=== PATIENT | male | born 1960 | race Caucasian/White ===

== ENCOUNTER 2017-05-16 08:06 | Emergency (ER) | payer MEDICAID ==
[~2017-05-16] VITALS: Ht 180.3 cm; Wt 62.6 kg
[~2017-05-16 08:06] MED LIST: FERR-57 PO; FURO-150 PO; MECL12.5 PO; MEGE40TA PO; OMEP20CA10 PO; POTA20TA83 PO; SPIR50TA PO; TRAM50TA92 PO
[2017-05-16 08:11] VITALS: BP_SYST 92
--- NOTE | 2017-05-16 08:15 | NUR ---
Patient to ER bed 5 to gown for evaluation. Side rails up. Report given to Dary WARD.
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
--- NOTE | 2017-05-16 08:26 | NUR ---
ER at bedside examining patient.
[2017-05-16] MEDS ORDERED: KETOROLAC TROMETHAMINE 30 MG VIAL IVP ONE (08:30)
--- NOTE | 2017-05-16 08:30 | NUR ---
# 20 gauge angiocath placed to rt wrist. Use of asceptic technique. Opsite placed over site. Flushed with 10 cc of normal saline. No evidence of infiltration noted. Patient tolerated well.
[2017-05-16 08:51] LABS: BASOPHILS % (AUTO) 0.5 % (0.0-2.0); EOSINOPHILS # (AUTO) 0.2 K/uL (0.0-0.4); EOSINOPHILS % (AUTO) 2.5 % (0.0-4.0); HEMATOCRIT 41.4 % (36-54); HEMOGLOBIN 13.6 g/dL (14.0-18.0); LYMPHOCYTES # (AUTO) 1.8 K/uL (1.0-5.5); LYMPHOCYTES % (AUTO) 24.3 % (20.5-51.5); MEAN CORPUSCULAR HEMOGLOBIN 33 pg (27-31); MEAN CORPUSCULAR HGB CONC 33 % (32-36); MEAN CORPUSCULAR VOLUME 102 fL (79.0-98.0); MONOCYTES # (AUTO) 0.5 K/uL (0.0-1.0); MONOCYTES % (AUTO) 6.9 % (1.7-9.3); NEUTROPHILS # (AUTO) 4.8 K/uL (1.8-7.7); PLATELET COUNT (AUTO) 91 K/uL (130-430); RED BLOOD CELL COUNT(AUTO) 4.07 MIL/uL (4.2-6.2); RED CELL DISTRIBUTION WIDTH 13.5 % (9.0-15.0); WHITE BLOOD COUNT (AUTO) 7.3 K/uL (4.8-10.8)
--- NOTE | 2017-05-16 09:00 | NUR ---
Pt went to radiology in stable condition
[2017-05-16 09:08] LABS: CALCIUM 9.2 mg/dL (8.4-11.0); CREATININE 0.92 mg/dL (0.55-1.30); POTASSIUM 3.8 mmol/L (3.5-5.1)
[2017-05-16 09:13] LABS: ALBUMIN 3.5 g/dL (3.4-4.8); TOTAL BILIRUBIN 0.2 mg/dL (0.0-1.0)
[2017-05-16 10:01] LABS: BILIRUBIN,URINE NEGATIVE (NEGATIVE); CLARITY/URINE CLEAR (CLEAR); COLOR,URINE YELLOW (YELLOW); GLUCOSE,URINE NEGATIVE (NEGATIVE); KETONES,URINE NEGATIVE (NEGATIVE); LEUKOCYTE ESTERASE ,URINE NEGATIVE (NEGATIVE); NITRITE, URINE NEGATIVE (NEGATIVE); PROTEIN URINE NEGATIVE (NEGATIVE); UROBILINOGEN,URINE 0.2 (0.2-1.0)
[2017-05-16 10:03] LABS: BLOOD, URINE TRACE (NEGATIVE)
[2017-05-16 10:05] LABS: NEUTROPHILS % (AUTO) 65.8 % (40.0-70.0)
[2017-05-16 10:12] LABS: BACTERIA,URINE RARE /HPF (None Seen); RBC,URINE 0-3 /HPF (0-3); WBC,URINE NONE SEEN /HPF (0-3)
[2017-05-16 10:13] LABS: MUCUS,URINE None Seen /LPF (None Seen)
[2017-05-16 10:15] VITALS: BP_SYST 100
--- NOTE | 2017-05-16 10:15 | NUR ---
Patient given written and verbal discharge instructions and verbalizes understanding. ER MD discussed with patient the results and treatment provided. Patient in stable condition. ID arm band removed. IV catheter removed intact and dressing applied, no active bleeding. Rx of motrin given. Patient educated on pain management and to follow up with PMD. Pain Scale 3. Dr Valadez is aware, pain medication given here and prescription for home Opportunity for questions provided and answered.
== END 2017-05-16 10:15 | disposition home or self-care (01) ==
LOC: SED 08:06
DX: S20.211A Contusion of right front wall of thorax, initial encounter (principal); W19.XXXA Unspecified fall, initial encounter; Y93.89 Activity, other specified; Y92.89 Other specified places as the place of occurrence of the external cause; Y99.8 Other external cause status; J44.9 Chronic obstructive pulmonary disease, unspecified; K74.60 Unspecified cirrhosis of liver; Z79.899 Other long term (current) drug therapy
CPT/HCPCS: 36415; 71250; 74176; 80053; 81000; 85025; 96374; 99285; J1885

== ENCOUNTER 2017-05-29 20:18 | Emergency (ER) | payer MEDICAID ==
[~2017-05-29] VITALS: Ht 180.3 cm; Wt 62.6 kg
[2017-05-29 20:27] VITALS: BP_SYST 93
[2017-05-29] MEDS ORDERED: NACL 0.9% 500 ML IV ONE (21:30)
[2017-05-29] MEDS ORDERED: LIDOCAINE 1% 10 MG/ML, 20 ML MDV INJ ONE (21:30)
[2017-05-29] MEDS ORDERED: KETOROLAC TROMETHAMINE 30 MG VIAL IVP ONE (21:45)
[2017-05-29 23:35] VITALS: BP_SYST 98
== END 2017-05-29 23:35 | disposition home or self-care (01) ==
LOC: SED 20:18
DX: S82.144A Nondisplaced bicondylar fracture of right tibia, initial encounter for closed fracture (principal); S83.511A Sprain of anterior cruciate ligament of right knee, initial encounter; J44.9 Chronic obstructive pulmonary disease, unspecified; K74.60 Unspecified cirrhosis of liver; Z79.899 Other long term (current) drug therapy; W18.09XA Striking against other object with subsequent fall, initial encounter; Y93.89 Activity, other specified; Y92.89 Other specified places as the place of occurrence of the external cause; Y99.8 Other external cause status
CPT/HCPCS: 20610; 73564; 73610; 73700; 96374; 99284; J1885; J2001; J7040

== ENCOUNTER 2017-10-08 15:53 | Inpatient (IN) | payer MEDICAID ==
[~2017-10-08] VITALS: Ht 177.8 cm; Wt 55.8 kg
[2017-10-08 16:21] VITALS: BP_SYST 104
[2017-10-08] MEDS ORDERED: BACITRACIN 1 GM OINT TP ONE (17:00)
[2017-10-08] MEDS ORDERED: HYDROcodone/ACETAMIN 5-325 MG TAB (NORCO/ VICODIN) PO ONE (18:15)
[2017-10-08 19:57] LABS: BASOPHILS # (AUTO) 0.1 K/uL (0.0-0.2); BASOPHILS % (AUTO) 0.5 % (0.0-2.0); EOSINOPHILS # (AUTO) 0.1 K/uL (0.0-0.4); HEMOGLOBIN 14.2 g/dL (14.0-18.0); LYMPHOCYTES # (AUTO) 2.5 K/uL (1.0-5.5); LYMPHOCYTES % (AUTO) 23.1 % (20.5-51.5); MEAN CORPUSCULAR HEMOGLOBIN 34 pg (27-31); MEAN CORPUSCULAR HGB CONC 33 % (32-36); MEAN CORPUSCULAR VOLUME 102 fL (79.0-98.0); MONOCYTES # (AUTO) 0.4 K/uL (0.0-1.0); MONOCYTES % (AUTO) 3.8 % (1.7-9.3); NEUTROPHILS # (AUTO) 7.6 K/uL (1.8-7.7); NEUTROPHILS % (AUTO) 71.6 % (40.0-70.0); PLATELET COUNT (AUTO) 177 K/uL (130-430); RED BLOOD CELL COUNT(AUTO) 4.23 MIL/uL (4.2-6.2); RED CELL DISTRIBUTION WIDTH 14.4 % (9.0-15.0); WHITE BLOOD COUNT (AUTO) 10.7 K/uL (4.8-10.8)
[2017-10-08 20:07] LABS: CALCIUM 9.2 mg/dL (8.4-11.0); CREATININE 1.27 mg/dL (0.55-1.30); POTASSIUM 3.6 mmol/L (3.5-5.1)
[2017-10-08 20:12] LABS: ALBUMIN 4.2 g/dL (3.4-4.8); TOTAL BILIRUBIN 0.3 mg/dL (0.0-1.0)
[2017-10-08 22:24] VITALS: BP_SYST 105
[2017-10-08] MEDS ORDERED: LORazepam 2 MG/ML VIAL IVP PRN (23:30)
[2017-10-08] MEDS ORDERED: ALBUTEROL SULFATE 0.083% 2.5 MG/3 ML VIAL.NEB INH PRN (23:30)
[2017-10-08] MEDS ORDERED: ACETAMINOPHEN 325 MG TABLET PO PRN (23:30)
[2017-10-08] MEDS ORDERED: ONDANSETRON HCL 4 MG/2 ML VIAL IVP PRN (23:30)
[2017-10-09 00:29] VITALS: BP_SYST 105
[2017-10-09] MEDS: D5NS 1,000 ML IV SCH ×2 (00:29→14:42)
[2017-10-09] MEDS: MORPHINE 2 MG/ML INJ. SYRINGE IVP PRN ×5 (00:30→23:17)
[2017-10-09 00:35] VITALS: BP_SYST 105
[2017-10-09 06:51] LABS: BASOPHILS % (AUTO) 0.4 % (0.0-2.0); EOSINOPHILS # (AUTO) 0.1 K/uL (0.0-0.4); EOSINOPHILS % (AUTO) 0.7 % (0.0-4.0); HEMOGLOBIN 12.9 g/dL (14.0-18.0); LYMPHOCYTES # (AUTO) 1.5 K/uL (1.0-5.5); LYMPHOCYTES % (AUTO) 15.3 % (20.5-51.5); MEAN CORPUSCULAR HEMOGLOBIN 35 pg (27-31); MEAN CORPUSCULAR HGB CONC 34 % (32-36); MEAN CORPUSCULAR VOLUME 103 fL (79.0-98.0); MONOCYTES # (AUTO) 0.8 K/uL (0.0-1.0); MONOCYTES % (AUTO) 8.2 % (1.7-9.3); NEUTROPHILS # (AUTO) 7.6 K/uL (1.8-7.7); NEUTROPHILS % (AUTO) 75.4 % (40.0-70.0); PLATELET COUNT (AUTO) 119 K/uL (130-430); RED BLOOD CELL COUNT(AUTO) 3.69 MIL/uL (4.2-6.2); RED CELL DISTRIBUTION WIDTH 14.1 % (9.0-15.0)
[2017-10-09 07:28] LABS: ALBUMIN 3.6 g/dL (3.4-4.8); CALCIUM 8.9 mg/dL (8.4-11.0); CREATININE 1.03 mg/dL (0.55-1.30); POTASSIUM 3.3 mmol/L (3.5-5.1); TOTAL BILIRUBIN 0.7 mg/dL (0.0-1.0)
[2017-10-09 08:40] VITALS: BP_SYST 129
[2017-10-09] MEDS: BANANA BAG 1 EA, FOLIC ACID 1 MG, THIAMINE HCL 100 MG, MAGNESIUM SULFATE 1 GM, MVI 10 M... IV SCH ×5 (10:47)
[2017-10-09 12:17] VITALS: BP_SYST 107
[2017-10-09 16:24] VITALS: BP_SYST 108
[2017-10-09 19:36] VITALS: BP_SYST 104
[2017-10-10] MEDS: D5NS 1,000 ML IV SCH (00:09)
[2017-10-10 00:46] VITALS: BP_SYST 106
[2017-10-10 08:30] VITALS: BP_SYST 105
[2017-10-10] MEDS: MORPHINE 2 MG/ML INJ. SYRINGE IVP PRN ×2 (08:44→15:21)
[2017-10-10] MEDS ORDERED: traMADol HCL HCL 50 MG TABLET (ULTRAM) PO PRN (09:45)
[2017-10-10] MEDS: BANANA BAG 1 EA, FOLIC ACID 1 MG, THIAMINE HCL 100 MG, MAGNESIUM SULFATE 1 GM, MVI 10 M... IV SCH ×5 (11:05)
[2017-10-10 12:10] VITALS: BP_SYST 101
[2017-10-10 16:10] VITALS: BP_SYST 95
[2017-10-10 18:37] VITALS: BP_SYST 95
[2017-10-10 20:00] VITALS: BP_SYST 104
== END 2017-10-10 21:25 | DRG 342 ==
LOC: SED 15:53 → SMU 20:38
PROVIDERS: ADMIT Internal Medicine; ATTEND Internal Medicine
PROC: 2W3DX1Z Immobilization of Left Lower Arm using Splint (ICD-10-PCS; principal; 2017-10-08)
DX: S52.509A Unspecified fracture of the lower end of unspecified radius, initial encounter for closed fracture (principal); S72.112A Displaced fracture of greater trochanter of left femur, initial encounter for closed fracture; K74.60 Unspecified cirrhosis of liver; J44.9 Chronic obstructive pulmonary disease, unspecified; D75.89 Other specified diseases of blood and blood-forming organs; F10.20 Alcohol dependence, uncomplicated; F17.210 Nicotine dependence, cigarettes, uncomplicated; V18.4XXA Pedal cycle driver injured in noncollision transport accident in traffic accident, initial encounter; Y93.55 Activity, bike riding; Y92.482 Bike path as the place of occurrence of the external cause; Y99.8 Other external cause status
CPT/HCPCS: 36415; 71045; 72170-TC; 72192-TC; 73502; 73560-TC; 80053; 85025; 85610-TC; 86886; 86900; 86901; 93005; 93306; 97110-GP; 97116-GP; 97530-GP; 99285; J2060; J2270; J3411; J3475; J3490; J7030; J7042

== ENCOUNTER 2018-02-21 05:16 | Inpatient (IN) | payer MEDICAID ==
[2018-02-21] VITALS (18 sets, daily range): BP systolic 82–153
[~2018-02-21] VITALS: Ht 180.3 cm; Wt 59.0 kg
[~2018-02-21 05:16] MED LIST changes: +ASPI-1063 PO; +CARV3.1246 PO; -FERR-57 PO; +FOLI-43 PO; -MECL12.5 PO; -MEGE40TA PO; -OMEP20CA10 PO; -POTA20TA83 PO; -SPIR50TA PO; +VITD400 PO
[2018-02-21] MEDS ORDERED: NACL 0.9% 1,000 ML IV ONE ×5 (05:30→10:15)
[2018-02-21] MEDS ORDERED: LEVOFLOXACIN 500 MG/D5W 100 ML IV ONE (05:30)
[2018-02-21] MEDS ORDERED: methylPREDNISolone SOD SUCC 40 MG/ML VIAL IVP ONE (05:30)
[2018-02-21] MEDS ORDERED: ASPI-862 PO (05:44)
[2018-02-21] MEDS ORDERED: SPIR50TA26 PO (05:44)
[2018-02-21] MEDS ORDERED: FERR-57 PO (05:44)
[2018-02-21] MEDS ORDERED: TRIA1CAP53 PO (05:44)
[2018-02-21] MEDS ORDERED: LIP20 PO (05:44)
[2018-02-21 07:51] LABS: CALCIUM 7.7 mg/dL (8.4-11.0); CREATININE 3.6 mg/dL (0.55-1.30); POTASSIUM 4.9 mmol/L (3.5-5.1)
[2018-02-21 08:00] LABS: ALBUMIN 3.2 g/dL (3.4-4.8); TOTAL BILIRUBIN 0.8 mg/dL (0.0-1.0)
[2018-02-21] MEDS ORDERED: SODIUM BICARBONATE 8.4% JECT 50 MEQ/50 ML SYRINGE ONE (08:29)
[2018-02-21] MEDS ORDERED: SODIUM BICARBONATE 8.4% JECT 50 MEQ/50 ML SYRINGE IVP ONE (08:30)
[2018-02-21 08:57] LABS: PLATELET COUNT (AUTO) 115 K/uL (130-430)
[2018-02-21] MEDS ORDERED: PANTOPRAZOLE SODIUM 40 MG/VIAL (PROTONIX) IVP ONE (09:00)
[2018-02-21 09:01] LABS: HEMATOCRIT 40.3 % (36-54); HEMOGLOBIN 13.5 g/dL (14.0-18.0); MEAN CORPUSCULAR HEMOGLOBIN 36 pg (27-31); MEAN CORPUSCULAR HGB CONC 34 % (32-36); MEAN CORPUSCULAR VOLUME 107 fL (79.0-98.0); RED BLOOD CELL COUNT(AUTO) 3.75 MIL/uL (4.2-6.2); RED CELL DISTRIBUTION WIDTH 16.6 % (9.0-15.0); WHITE BLOOD COUNT (AUTO) 24.8 K/uL (4.8-10.8)
[2018-02-21 09:11] LABS: INR 1.2 (0.80-1.20); PROTHROMBIN TIME 11.8 SECS (9.5-12.5)
[2018-02-21 09:28] LABS: BAND % (MANUAL) 6 % (0-6); BASOPHILS % (MANUAL) 0 % (0-2); EOSINOPHILS % (MANUAL) 0 % (0-7); LYMPHOCYTES % (MANUAL) 8 % (20-46); MONOCYTES % (MANUAL) 4 % (0-11)
[2018-02-21] MEDS ORDERED: LORazepam 2 MG/ML VIAL ONE (09:51)
[2018-02-21 10:23] LABS: HEMATOCRIT 41.4 % (36-54); HEMOGLOBIN 13.7 g/dL (14.0-18.0)
[2018-02-21] MEDS ORDERED: NACL 0.9% 1,000 ML IV SCH ×2 (10:30→14:30)
[2018-02-21] MEDS ORDERED: OCTREOTIDE ACETATE 500 MCG in NS 247.5 ML IV SCH (10:45)
[2018-02-21] MEDS ORDERED: BANANA BAG 1 EA, FOLIC ACID 1 MG, THIAMINE HCL 100 MG, MAGNESIUM SULFATE 1 GM, MVI 10 M... IV SCH ×5 (11:00)
[2018-02-21] MEDS ORDERED: OCTREOTIDE ACETATE 1,250 MCG in NS 243.75 ML IV SCH (12:00)
[2018-02-21] MEDS ORDERED: PANTOPRAZOLE SODIUM 80 MG in NS 100 ML IV ONE (12:00)
[2018-02-21] MEDS: PANTOPRAZOLE SODIUM 40 MG in NS 50 ML IV SCH ×3 (12:44→23:26)
[2018-02-21] MEDS: PIPERACILLIN/TAZO 3.375/DEX-IS 50 ML IV SCH ×4 (13:20→23:26)
[2018-02-21] MEDS ORDERED: IPRATROPIUM BROM 0.5 MG/2.5 ML VIAL.NEB (ATROVENT) INH PRN (14:15)
[2018-02-21] MEDS ORDERED: ALBUTEROL SULFATE 0.083% 2.5 MG/3 ML VIAL.NEB INH PRN (14:15)
[2018-02-21 14:59] LABS: HEMATOCRIT 36.6 % (36-54)
[2018-02-21 15:00] LABS: HEMOGLOBIN 12.5 g/dL (14.0-18.0)
[2018-02-21 15:08] LABS: ANION GAP 24 (5-15); CHLORIDE 98 mmol/L (98-107); GLUCOSE 148 mg/dL (70-99); POTASSIUM 4.9 mmol/L (3.5-5.1); SODIUM SERUM 135 mmol/L (136-145)
[2018-02-21 15:09] LABS: CALCIUM 6.6 mg/dL (8.4-11.0)
[2018-02-21 15:10] LABS: ACETONE, SERUM TRACE (NEGATIVE); CREATININE 2.39 mg/dL (0.55-1.30); GFR AFRICAN AMERICAN 37 mL/min (>90); UREA NITROGEN, BLOOD 58 mg/dL (8-21)
[2018-02-21 15:17] LABS: ALANINE AMINOTRANSFERASE 139 U/L (12-78); ALBUMIN 2.9 g/dL (3.4-4.8); ASPARTATE AMINOTRANSFERASE 281 U/L (10-37); TOTAL BILIRUBIN 1.3 mg/dL (0.0-1.0)
[2018-02-21] MEDS ORDERED: fentaNYL CITRATE/PF 100 MCG/2 ML AMP ONE (15:24)
[2018-02-21] MEDS ORDERED: SIMETHICONE 40 MG/0.6 ML ML ONE (15:25)
[2018-02-21 15:42] LABS: LIPASE 5980 U/L (73-393)
[2018-02-21] MEDS: MEPERIDINE HCL/PF 100 MG/ML AMP ONE ×3 (16:14→16:22)
[2018-02-21] MEDS: MIDAZOLAM HCL 5 MG/5 ML VIAL ONE ×4 (16:16→16:26)
[2018-02-21] MEDS ORDERED: DIPHENHYDRAMINE INJ 50 MG/ML VIAL ONE (16:55)
[2018-02-21] MEDS ORDERED: SODIUM BICARBONATE 8.4% JECT 150 MEQ in D5W 1,000 ML IV SCH (17:00)
[2018-02-21] MEDS: ALBUTEROL SULFATE 0.083% 2.5 MG/3 ML VIAL.NEB INH SCH (19:58)
[2018-02-21] MEDS: IPRATROPIUM BROM 0.5 MG/2.5 ML VIAL.NEB (ATROVENT) INH SCH (19:59)
[2018-02-21] MEDS ORDERED: PANTOPRAZOLE SODIUM 40 MG/VIAL (PROTONIX) IVP SCH (21:00)
[2018-02-21 21:20] LABS: HEMATOCRIT 36.2 % (36-54); HEMOGLOBIN 12.6 g/dL (14.0-18.0)
[2018-02-22] VITALS (24 sets, daily range): BP systolic 96–127
[2018-02-22] MEDS: ALBUTEROL SULFATE 0.083% 2.5 MG/3 ML VIAL.NEB INH SCH ×4 (01:13→19:56)
[2018-02-22] MEDS: IPRATROPIUM BROM 0.5 MG/2.5 ML VIAL.NEB (ATROVENT) INH SCH ×4 (01:13→19:56)
[2018-02-22] MEDS: NACL 0.9% 1,000 ML IV SCH ×4 (01:27→16:42)
[2018-02-22] MEDS: PANTOPRAZOLE SODIUM 40 MG in NS 50 ML IV SCH ×5 (01:29→23:13)
[2018-02-22 04:29] LABS: HEMATOCRIT 36.6 % (36-54); HEMOGLOBIN 12.3 g/dL (14.0-18.0); MEAN CORPUSCULAR HEMOGLOBIN 36 pg (27-31); MEAN CORPUSCULAR HGB CONC 34 % (32-36); MEAN CORPUSCULAR VOLUME 107 fL (79.0-98.0); PLATELET COUNT (AUTO) 53 K/uL (130-430); RED BLOOD CELL COUNT(AUTO) 3.42 MIL/uL (4.2-6.2); RED CELL DISTRIBUTION WIDTH 16.6 % (9.0-15.0)
[2018-02-22 04:47] LABS: ALBUMIN 2.8 g/dL (3.4-4.8); CREATININE 1.88 mg/dL (0.55-1.30); POTASSIUM 3.8 mmol/L (3.5-5.1); THYROID STIMULATING HORMONE 0.21 uIu/mL (0.34-4.82); TOTAL BILIRUBIN 0.9 mg/dL (0.0-1.0)
[2018-02-22 04:58] LABS: CALCIUM 6.9 mg/dL (8.4-11.0)
[2018-02-22] MEDS: PIPERACILLIN/TAZO 3.375/DEX-IS 50 ML IV SCH ×4 (05:13→23:12)
[2018-02-22 05:20] LABS: WHITE BLOOD COUNT (AUTO) 7.2 K/uL (4.8-10.8)
[2018-02-22 06:06] LABS: BAND % (MANUAL) 13 % (0-6); BASOPHILS % (MANUAL) 0 % (0-2); EOSINOPHILS % (MANUAL) 0 % (0-7); LYMPHOCYTES % (MANUAL) 9 % (20-46); MONOCYTES % (MANUAL) 7 % (0-11)
[2018-02-22] MEDS: THIAMINE HCL 100 MG in NS 50 ML IV SCH (08:31)
[2018-02-22] MEDS: LORazepam 2 MG/ML VIAL IVP PRN ×3 (08:32→16:42)
[2018-02-22] MEDS: chlordiazePOXIDE HCL 25 MG CAPSULE PO SCH ×2 (11:03→21:36)
[2018-02-22 15:47] LABS: HEMATOCRIT 34.9 % (36-54); HEMOGLOBIN 11.6 g/dL (14.0-18.0)
[2018-02-22] MEDS ORDERED: VANCOMYCIN HCL 1000 MG/VIAL IV ONE (20:53)
[2018-02-22] MEDS ORDERED: VANCOMYCIN HCL 1 GM/NS PREMIX 250 ML IV SCH ×2 (21:00→21:30)
[2018-02-22 21:24] LABS: HEMOGLOBIN 11.2 g/dL (14.0-18.0)
[2018-02-23] VITALS (13 sets, daily range): BP systolic 91–122
[2018-02-23] MEDS: IPRATROPIUM BROM 0.5 MG/2.5 ML VIAL.NEB (ATROVENT) INH SCH ×4 (01:00→19:30)
[2018-02-23] MEDS: ALBUTEROL SULFATE 0.083% 2.5 MG/3 ML VIAL.NEB INH SCH ×4 (01:00→19:30)
[2018-02-23] MEDS: NACL 0.9% 1,000 ML IV SCH ×2 (03:01→12:26)
[2018-02-23] MEDS: PANTOPRAZOLE SODIUM 40 MG in NS 50 ML IV SCH (04:07)
[2018-02-23] MEDS: PIPERACILLIN/TAZO 3.375/DEX-IS 50 ML IV SCH ×4 (05:08→22:14)
[2018-02-23 06:53] LABS: ALBUMIN 2.4 g/dL (3.4-4.8); CALCIUM 7.7 mg/dL (8.4-11.0); CREATININE 0.97 mg/dL (0.55-1.30); POTASSIUM 3.4 mmol/L (3.5-5.1); TOTAL BILIRUBIN 0.7 mg/dL (0.0-1.0)
[2018-02-23 07:30] LABS: HEMATOCRIT 33.7 % (36-54); LYMPHOCYTES # (AUTO) 0.7 K/uL (1.0-5.5); MEAN CORPUSCULAR VOLUME 107 fL (79.0-98.0); MONOCYTES # (AUTO) 0.7 K/uL (0.0-1.0); RED BLOOD CELL COUNT(AUTO) 3.15 MIL/uL (4.2-6.2); WHITE BLOOD COUNT (AUTO) 5.4 K/uL (4.8-10.8)
[2018-02-23 08:05] LABS: BASOPHILS % (AUTO) 0.6 % (0.0-2.0); EOSINOPHILS % (AUTO) 0.6 % (0.0-4.0); HEMOGLOBIN 11.1 g/dL (14.0-18.0); LYMPHOCYTES % (AUTO) 13.2 % (20.5-51.5); MEAN CORPUSCULAR HEMOGLOBIN 35 pg (27-31); MEAN CORPUSCULAR HGB CONC 33 % (32-36); MONOCYTES % (AUTO) 12.4 % (1.7-9.3); NEUTROPHILS % (AUTO) 73.2 % (40.0-70.0); RED CELL DISTRIBUTION WIDTH 16.5 % (9.0-15.0)
[2018-02-23 08:19] LABS: PLATELET COUNT (AUTO) 38 K/uL (130-430)
[2018-02-23] MEDS ORDERED: VANCOMYCIN HCL 750 MG in NS 250 ML IV SCH (09:00)
[2018-02-23] MEDS ORDERED: THIAMINE HCL 100 MG/ML VIAL ONE (09:50)
[2018-02-23] MEDS: PANTOPRAZOLE SODIUM 40 MG/VIAL (PROTONIX) IVP SCH ×2 (09:50→20:46)
[2018-02-23] MEDS: chlordiazePOXIDE HCL 25 MG CAPSULE PO SCH ×2 (09:50→20:45)
[2018-02-23] MEDS: VANCOMYCIN HCL 125 MG CAPSULE PO SCH ×4 (09:51→20:45)
[2018-02-23] MEDS: THIAMINE HCL 100 MG in NS 50 ML IV SCH (10:03)
[2018-02-23] MEDS ORDERED: POTASSIUM CHLORIDE 20 MEQ TAB.PRT.SR PO ONE (15:15)
[2018-02-23 21:05] LABS: HEMATOCRIT 31.6 % (36-54); HEMOGLOBIN 10.7 g/dL (14.0-18.0)
[2018-02-24] VITALS: BP_SYST 92
[2018-02-24] MEDS: ALBUTEROL SULFATE 0.083% 2.5 MG/3 ML VIAL.NEB INH SCH ×4 (00:56→19:06)
[2018-02-24] MEDS: IPRATROPIUM BROM 0.5 MG/2.5 ML VIAL.NEB (ATROVENT) INH SCH ×4 (00:57→19:06)
[2018-02-24] MEDS: PIPERACILLIN/TAZO 3.375/DEX-IS 50 ML IV SCH ×4 (04:35→22:07)
[2018-02-24 06:46] LABS: BASOPHILS % (AUTO) 0.4 % (0.0-2.0); EOSINOPHILS # (AUTO) 0.1 K/uL (0.0-0.4); EOSINOPHILS % (AUTO) 1.4 % (0.0-4.0); HEMATOCRIT 30.4 % (36-54); HEMOGLOBIN 10.3 g/dL (14.0-18.0); LYMPHOCYTES # (AUTO) 0.9 K/uL (1.0-5.5); LYMPHOCYTES % (AUTO) 16.6 % (20.5-51.5); MEAN CORPUSCULAR HEMOGLOBIN 36 pg (27-31); MEAN CORPUSCULAR HGB CONC 34 % (32-36); MEAN CORPUSCULAR VOLUME 106 fL (79.0-98.0); MONOCYTES # (AUTO) 0.6 K/uL (0.0-1.0); MONOCYTES % (AUTO) 11.6 % (1.7-9.3); NEUTROPHILS # (AUTO) 3.8 K/uL (1.8-7.7); RED BLOOD CELL COUNT(AUTO) 2.85 MIL/uL (4.2-6.2); RED CELL DISTRIBUTION WIDTH 16.8 % (9.0-15.0); WHITE BLOOD COUNT (AUTO) 5.4 K/uL (4.8-10.8)
[2018-02-24 06:57] LABS: ALBUMIN 2.3 g/dL (3.4-4.8); CALCIUM 8.1 mg/dL (8.4-11.0); CREATININE 0.96 mg/dL (0.55-1.30); POTASSIUM 3.4 mmol/L (3.5-5.1); TOTAL BILIRUBIN 0.7 mg/dL (0.0-1.0)
[2018-02-24 07:03] LABS: PLATELET COUNT (AUTO) 34 K/uL (130-430)
[2018-02-24 07:49] VITALS: BP_SYST 92
[2018-02-24 08:15] VITALS: BP_SYST 132
[2018-02-24] MEDS ORDERED: POTASSIUM CHLORIDE 20 MEQ TAB.PRT.SR PO ONE (09:30)
[2018-02-24] MEDS: chlordiazePOXIDE HCL 25 MG CAPSULE PO SCH ×2 (09:45→20:23)
[2018-02-24] MEDS: THIAMINE HCL 100 MG in NS 50 ML IV SCH (09:45)
[2018-02-24] MEDS: VANCOMYCIN HCL 125 MG CAPSULE PO SCH ×4 (09:45→20:23)
[2018-02-24] MEDS: PANTOPRAZOLE SODIUM 40 MG/VIAL (PROTONIX) IVP SCH ×2 (09:45→20:23)
[2018-02-24 11:19] VITALS: BP_SYST 91
[2018-02-24] MEDS: NACL 0.9% 1,000 ML IV SCH (14:09)
[2018-02-24 15:19] VITALS: BP_SYST 91
[2018-02-24 20:30] VITALS: BP_SYST 104
[2018-02-25] MEDS: ALBUTEROL SULFATE 0.083% 2.5 MG/3 ML VIAL.NEB INH SCH ×3 (00:30→13:05)
[2018-02-25] MEDS: IPRATROPIUM BROM 0.5 MG/2.5 ML VIAL.NEB (ATROVENT) INH SCH ×3 (00:30→13:05)
[2018-02-25 03:52] VITALS: BP_SYST 98
[2018-02-25] MEDS: PIPERACILLIN/TAZO 3.375/DEX-IS 50 ML IV SCH ×2 (05:57→12:08)
[2018-02-25] MEDS ORDERED: VANC250C11 PO (08:45)
[2018-02-25] MEDS ORDERED: OMEP20TA20 PO (08:46)
[2018-02-25] MEDS: PANTOPRAZOLE SODIUM 40 MG/VIAL (PROTONIX) IVP SCH (09:16)
[2018-02-25] MEDS: chlordiazePOXIDE HCL 25 MG CAPSULE PO SCH (09:16)
[2018-02-25] MEDS: VANCOMYCIN HCL 125 MG CAPSULE PO SCH ×2 (09:16→13:52)
[2018-02-25] MEDS: THIAMINE HCL 100 MG in NS 50 ML IV SCH (09:17)
[2018-02-25 09:50] VITALS: BP_SYST 94
[2018-02-25] MEDS: NACL 0.9% 1,000 ML IV SCH (09:59)
[2018-02-25 12:30] VITALS: BP_SYST 97
[2018-02-25 13:38] VITALS: BP_SYST 97
== END 2018-02-25 14:38 | disposition home or self-care (01) | DRG 720 ==
LOC: SED 05:16 → SIC 09:12 → SMU 02-23 11:25
PROVIDERS: ADMIT Internal Medicine Hospice and Palliative Medicine; ATTEND Internal Medicine Hospice and Palliative Medicine
PROC: 0DB68ZX Excision of Stomach, Via Natural or Artificial Opening Endoscopic, Diagnostic (ICD-10-PCS; 2018-02-21)
PROC: 02HV33Z Insertion of Infusion Device into Superior Vena Cava, Percutaneous Approach (ICD-10-PCS; 2018-02-21)
PROC: B548ZZA Ultrasonography of Superior Vena Cava, Guidance (ICD-10-PCS; 2018-02-21)
PROC: 0DB98ZX Excision of Duodenum, Via Natural or Artificial Opening Endoscopic, Diagnostic (ICD-10-PCS; principal; 2018-02-21 15:30)
DX: A41.9 Sepsis, unspecified organism (principal); N17.0 Acute kidney failure with tubular necrosis; R65.21 Severe sepsis with septic shock; K22.6 Gastro-esophageal laceration-hemorrhage syndrome; A04.72 Enterocolitis due to Clostridium difficile, not specified as recurrent; F10.231 Alcohol dependence with withdrawal delirium; K26.4 Chronic or unspecified duodenal ulcer with hemorrhage; E87.2 Acidosis; K76.6 Portal hypertension; K29.71 Gastritis, unspecified, with bleeding; E87.1 Hypo-osmolality and hyponatremia; I12.9 Hypertensive chronic kidney disease with stage 1 through stage 4 chronic kidney disease, or unspecified chronic kidney disease; E87.6 Hypokalemia; D69.6 Thrombocytopenia, unspecified; K85.90 Acute pancreatitis without necrosis or infection, unspecified; K29.80 Duodenitis without bleeding; K22.10 Ulcer of esophagus without bleeding; N18.9 Chronic kidney disease, unspecified; K70.10 Alcoholic hepatitis without ascites; F17.210 Nicotine dependence, cigarettes, uncomplicated; G89.29 Other chronic pain; J44.9 Chronic obstructive pulmonary disease, unspecified; K31.89 Other diseases of stomach and duodenum; M16.10 Unilateral primary osteoarthritis, unspecified hip; W19.XXXA Unspecified fall, initial encounter; Z81.1 Family history of alcohol abuse and dependence; Y93.89 Activity, other specified; Y92.89 Other specified places as the place of occurrence of the external cause; Y99.8 Other external cause status; Z79.2 Long term (current) use of antibiotics; Z79.899 Other long term (current) drug therapy
CPT/HCPCS: 36415; 36600; 43239; 70450-TC; 71045; 76700-TC; 80053; 80061; 82009-TC; 82105; 82150-TC; 82550-TC; 82803-TC; 83605; 83690-TC; 83735-TC; 83880; 84443-TC; 85007; 85018-TC; 85025; 85027; 85610-TC; 85730-TC; 86886; 86900; 86901; 87040-TC; 87081; 87230-TC; 88305; 88312; 88313; 93005; 93306; 94640; 94760; 96361; 96365; 96375; 99285; C1751; C9113; G0482; J1030; J1200; J1956; J2060; J2175; J2250; J2354; J2543; J3010; J3370; J3411; J3475; J3490; J7030; J7050; J7060; J7613

== ENCOUNTER 2018-05-17 15:48 | Inpatient (IN) | payer MEDICAID ==
[~2018-05-17] VITALS: Ht 180.3 cm; Wt 59.0 kg
[~2018-05-17 15:48] MED LIST changes: -ASPI-1063 PO; +ASPI-862 PO; +FERR-57 PO; +LIP20 PO; +OMEP20TA20 PO; +SPIR50TA5 PO; +TRIA1CAP53 PO; +VANC250C11 PO
[2018-05-17 15:51] VITALS: BP_SYST 111
--- NOTE | 2018-05-17 16:58 | NUR ---
[facility]
--- NOTE | 2018-05-17 17:30 | NUR ---
Patient came in via BLS ambulance with c/c of dizziness, chills, and fever. Patient states he feels like he has the flu. Patient denies nausea, vomiting, or diarrhea. Patient resting comfortably. Will continue to follow up regarding needs.
--- NOTE | 2018-05-17 18:15 | NUR ---
ER Dr. Gonzalez at bedside examining patient.
--- NOTE | 2018-05-17 18:30 | NUR ---
Lab at bedside for completion of exam.
--- NOTE | 2018-05-17 18:41 | NUR ---
XR at bedside for exam.
[2018-05-17 18:51] LABS: HEMATOCRIT 48.6 % (36-54); HEMOGLOBIN 16.8 g/dL (14.0-18.0); MEAN CORPUSCULAR HEMOGLOBIN 35 pg (27-31); MEAN CORPUSCULAR HGB CONC 35 % (32-36); MEAN CORPUSCULAR VOLUME 102 fL (79.0-98.0); PLATELET COUNT (AUTO) 160 K/uL (130-430); RED BLOOD CELL COUNT(AUTO) 4.76 MIL/uL (4.2-6.2); RED CELL DISTRIBUTION WIDTH 13.8 % (9.0-15.0); WHITE BLOOD COUNT (AUTO) 15.9 K/uL (4.8-10.8)
[2018-05-17 19:04] LABS: CALCIUM 12.4 mg/dL (8.4-11.0); CREATININE 3.53 mg/dL (0.55-1.30); POTASSIUM 5.3 mmol/L (3.5-5.1)
[2018-05-17 19:08] LABS: ALBUMIN 4.6 g/dL (3.4-4.8); TOTAL BILIRUBIN 0.8 mg/dL (0.0-1.0)
--- NOTE | 2018-05-17 19:10 | NUR ---
Received patient A/O x 4. VSS. Patient denies pain or any discomfort. POC discussed. No SOB or acute distress noted. Will continue to monitor.
[2018-05-17] MEDS ORDERED: NACL 0.9% 1,000 ML IV ONE (19:15)
[2018-05-17 19:30] LABS: BAND % (MANUAL) 5 % (0-6); BASOPHILS % (MANUAL) 0 % (0-2); EOSINOPHILS % (MANUAL) 0 % (0-7); LYMPHOCYTES % (MANUAL) 15 % (20-46); MONOCYTES % (MANUAL) 4 % (0-11)
--- NOTE | 2018-05-17 19:50 | NUR ---
#20 gauge angiocath placed to RAC. Use of asceptic technique. Opsite placed over site. Blood return noted. Flushed with 10 cc of normal saline. No evidence of infiltration noted. Patient tolerated well.
[2018-05-17] MEDS ORDERED: traMADol HCL HCL 50 MG TABLET (ULTRAM) PO PRN (20:15)
[2018-05-17] MEDS ORDERED: IPRATROPIUM/ALBUTEROL SULFATE 3 ML AMPUL.NEB (DUONEB) INH PRN (20:30)
[2018-05-17] MEDS ORDERED: ONDANSETRON HCL 4 MG/2 ML VIAL IVP PRN (20:30)
[2018-05-17] MEDS ORDERED: ACETAMINOPHEN 325 MG TABLET PO PRN (20:30)
--- NOTE | 2018-05-17 20:30 | NUR ---
Patient will be admitted to care of Dr. Tafoya. Admitted to Telemetry unit. Will go to room 134B. Belongings list completed. Summary report printed. Report will be given at bedside.
[2018-05-17] MEDS ORDERED: PIPERACILLIN/TAZO 3.375 GM in NS 50 ML IV ONE (20:45)
[2018-05-17] MEDS ORDERED: PIPERACILLIN/TAZOBACTAM 3.375 GM/VIAL (ZOSYN) IV ONE (20:48)
[2018-05-17] MEDS ORDERED: OMEPRAZOLE 20 MG PO SCH (21:00)
[2018-05-17 21:18] VITALS: BP_SYST 128
--- NOTE | 2018-05-17 21:18 | NUR ---
ADMISSION NOTE Received patient from ER via elvia, received report from SYLVIA HENDERSON. Patient admitted with diagnosis of COPD, HYPONATREMIA. Patient oriented to hospital routine, call light, toileting and safety-patient verbalized understanding.
--- NOTE | 2018-05-17 21:30 | NUR ---
INITIAL NOTE PATIENT AT THIS TIME IS RESTING IN BED, STABLE, NO SIGNS OF RESPIRATORY DISTRESS. PATIENT VERBALIZES NO PAIN. PLAN OF CARE FOR THE EVENING IS COMMUNICATED WITH THE PATIENT. CALL LIGHT- TEACH BACK IS SUCCESSFUL. FALL AND SAFETY PRECAUTIONS WILL BE IN PLACE THROUGHOUT THE SHIFT. BED IS LOCKED, ALARMED, AND AT THE LOWEST LEVEL.
--- NOTE | 2018-05-17 21:31 | NUR ---
FLU SHOT REFUSAL PATIENT REFUSES FLU SHOT AT THIS TIME DESPITE EDUCATION, HE BELIEVES IT WILL CAUSE HIM TO BE SICK.
[2018-05-17] MEDS: NACL 0.9% 1,000 ML IV SCH (21:41)
[2018-05-17] MEDS ORDERED: LEVOFLOXACIN 500 MG/D5W 100 ML IV ONE ×2 (21:45→22:20)
[2018-05-17] MEDS: CARVEDILOL 3.125 MG TABLET (COREG) PO SCH (21:48)
[2018-05-17] MEDS: SPIRONOLACTONE 50 MG TABLET (ALDACTONE) PO SCH (21:49)
[2018-05-17] MEDS: FERROUS SULFATE 325 MG TABLET.DR PO SCH (21:49)
[2018-05-17 22:22] VITALS: BP_SYST 128
--- NOTE | 2018-05-17 22:56 | NUR ---
PRN BREATHING TREATMENT RT IS AT BEDSIDE AT THIS TIME PER PATIENT REQUEST FOR BREATHING TREATMENT. HIS IS IN NO RESPIRATORY DISTRESS, LUNG SOUNDS ARE CLEAR. HE IS STABLE. CALL LIGHT WITHIN REACH. BED IS LOCKED, ALARMED, AND AT THE LOWEST LEVEL.
[2018-05-17] MEDS: VANCOMYCIN HCL 250 MG CAPSULE PO SCH (23:15)
--- NOTE | 2018-05-18 00:53 | NUR ---
NOTE PATIENT IS SLEEPING, STABLE, NO SIGNS OF RESPIRATORY DISTRESS. CALL LIGHT WITHIN REACH. BED IS LOCKED, ALARMED, AND AT THE LOWEST LEVEL.
[2018-05-18 01:01] VITALS: BP_SYST 92
--- NOTE | 2018-05-18 02:50 | NUR ---
NOTE PATIENT IS SLEEPING, STABLE, NO SIGNS OF RESPIRATORY DISTRESS. CALL LIGHT WITHIN REACH. BED IS LOCKED, ALARMED, AND AT THE LOWEST LEVEL.
--- NOTE | 2018-05-18 04:42 | NUR ---
NOTE PATIENT IS SLEEPING, STABLE, NO SIGNS OF RESPIRATORY DISTRESS. CALL LIGHT WITHIN REACH. BED IS LOCKED, ALARMED, AND AT THE LOWEST LEVEL.
[2018-05-18] MEDS: VANCOMYCIN HCL 250 MG CAPSULE PO SCH (05:12)
[2018-05-18] MEDS: NACL 0.9% 1,000 ML IV SCH ×2 (05:13→10:49)
--- NOTE | 2018-05-18 06:25 | NUR ---
CLOSING NOTE PATIENT IS SLEEPING, STABLE, NO SIGNS OF RESPIRATORY DISTRESS. PATIENT HAS HAD NO COMPLAINTS OF PAIN OR SOB THROUGHOUT THE SHIFT. CALL LIGHT IS WITHIN REACH. FALL AND SAFETY PRECAUTIONS HAVE BEEN IN PLACE THROUGHOUT THE SHIFT. BED IS LOCKED, ALARMED, AND AT THE LOWEST LEVEL. WILL CONTINUE TO MONITOR UNTIL SHIFT REPORT IS GIVEN AT BEDSIDE TO AM NURSE.
[2018-05-18 06:41] LABS: BASOPHILS % (AUTO) 0.3 % (0.0-2.0); EOSINOPHILS # (AUTO) 0.1 K/uL (0.0-0.4); EOSINOPHILS % (AUTO) 0.6 % (0.0-4.0); HEMATOCRIT 43.7 % (36-54); HEMOGLOBIN 14.5 g/dL (14.0-18.0); LYMPHOCYTES # (AUTO) 1.6 K/uL (1.0-5.5); LYMPHOCYTES % (AUTO) 15.3 % (20.5-51.5); MEAN CORPUSCULAR HEMOGLOBIN 34 pg (27-31); MEAN CORPUSCULAR HGB CONC 33 % (32-36); MEAN CORPUSCULAR VOLUME 103 fL (79.0-98.0); MONOCYTES # (AUTO) 0.9 K/uL (0.0-1.0); MONOCYTES % (AUTO) 8.7 % (1.7-9.3); NEUTROPHILS % (AUTO) 75.1 % (40.0-70.0); PLATELET COUNT (AUTO) 107 K/uL (130-430); RED BLOOD CELL COUNT(AUTO) 4.23 MIL/uL (4.2-6.2); RED CELL DISTRIBUTION WIDTH 14.4 % (9.0-15.0); WHITE BLOOD COUNT (AUTO) 10.6 K/uL (4.8-10.8)
[2018-05-18 06:43] LABS: ALBUMIN 3.5 g/dL (3.4-4.8); CALCIUM 10.4 mg/dL (8.4-11.0); CREATININE 2.64 mg/dL (0.55-1.30); POTASSIUM 5.1 mmol/L (3.5-5.1); TOTAL BILIRUBIN 0.8 mg/dL (0.0-1.0)
[2018-05-18] MEDS: PANTOPRAZOLE SODIUM 40 MG TAB PO SCH (07:25)
--- NOTE | 2018-05-18 07:25 | NUR ---
Opening Note patient resting in bed, eyes closed, breathing unlabored on room air, symmetrical chest expansion, no signs of distress, IV fluids infusing at this time, safety precautions in place, call light and bedside table left within reach, will be back to check on patient
[2018-05-18] MEDS: CARVEDILOL 3.125 MG TABLET (COREG) PO SCH ×2 (07:27→17:49)
[2018-05-18] MEDS: ASPIRIN 325 MG TABLET (ECOTRIN) PO SCH (08:25)
[2018-05-18] MEDS: FERROUS SULFATE 325 MG TABLET.DR PO SCH ×2 (08:26→21:57)
[2018-05-18] MEDS: CHOLECALCIFEROL (VITAMIN D-3) 400 UNIT TABLET PO SCH (08:29)
[2018-05-18] MEDS: ATORVASTATIN 20 MG TABLET PO SCH (08:29)
[2018-05-18] MEDS: ENOXAPARIN SODIUM 30 MG/0.3 ML SYRINGE SUBCUT SCH (08:30)
[2018-05-18] MEDS: SPIRONOLACTONE 50 MG TABLET (ALDACTONE) PO SCH (08:33)
--- NOTE | 2018-05-18 08:37 | NUR ---
Medication Administration patient eating breakfast in bed, educated patient on medications, verbalized understanding, does not know why he is taking diuretics, medications withheld at this time, encouraged patient to follow-up with PCP regarding medications and why he is taking them, verbalized understanding, tolerated meds well, IV fluids infusing at this time, educated patient on use of call light for assistance, verbalized understanding, safety precautions remain in place, bedside table and call light left within reach, will continue to monitor patient
--- NOTE | 2018-05-18 08:55 | NUR ---
Spoke With Dr. Tafoya at this time at nurses' station, clarified home medications with MD, stated he will make changes, verified if diuretics should be administered, MD stated to hold both at this time, will implement other MD orders
[2018-05-18] MEDS ORDERED: TRIAMTERENE/HYDROCHLOROTHIAZID 1 CAP CAPSULE (DYAZIDE37.5/25) PO SCH (09:00)
[2018-05-18 10:01] VITALS: BP_SYST 105
--- NOTE | 2018-05-18 10:58 | NUR ---
Patient Sitting up in Bed awake and alert, no complaints of pain, no complaints of nausea, no SOB, new bag of fluids hung, IV site patent, no other needs at this time, safety precautions remain in place, bedside table and call light left within reach, will continue to monitor patient
[2018-05-18] MEDS: IPRATROPIUM/ALBUTEROL SULFATE 3 ML AMPUL.NEB (DUONEB) INH SCH ×3 (11:40→23:26)
[2018-05-18 11:43] VITALS: BP_SYST 97
--- NOTE | 2018-05-18 12:30 | NUR ---
Patient Resting in Bed eyes closed, breathing unlabored on room air, IV fluids infusing at this time, no SOB, symmetrical chest expansion, safety precautions remain in place, bedside table and call light left within reach, will continue to monitor patient
--- NOTE | 2018-05-18 14:30 | NUR ---
Patient Watching TV at this time, no complaints of pain, breathing unlabored and symmetrical, no signs of SOB, educated patient on use of call light for assistance, verbalized understanding, call light and bedside table left within reach, will be back to check on patient
[2018-05-18 16:00] VITALS: BP_SYST 99
--- NOTE | 2018-05-18 16:15 | NUR ---
Patient Provided with Water no signs of distress, no complaints of N/V, IV fluids infusing, safety precautions remain in place, call light and bedside table left within reach, will be back to check on patient
--- NOTE | 2018-05-18 17:50 | NUR ---
Coreg Held at this time due to patient's decreased BP, patient asymptomatic, he is awake and alert, no complaints of pain, no SOB, no cough, no complaints of N/V. Emptied 300 mL of clear urine, safety precautions remain in place, bedside table and call light left within reach, will continue to monitor patient
--- NOTE | 2018-05-18 18:57 | NUR ---
Closing Note patient ambulated to restroom with steady gait, pulled out his IV, stated it was unintentional, no signs of distress, breathing unlabored on room air, no cough or SOB, safety precautions remain in place, will endorse to cook night nurse
--- NOTE | 2018-05-18 19:50 | NUR ---
INITIAL NOTE AT INITIAL ASSESSMENT, PATIENT IS LAYING DOWN RESTING IN BED, STABLE, NO SIGNS OF RESPIRATORY DISTRESS. PATIENT VERBALIZES NO PAIN. PLAN OF CARE FOR THE EVENING IS COMMUNICATED WITH THE PATIENT. CALL LIGHT- TEACH BACK IS SUCCESSFUL. FALL AND SAFETY PRECAUTIONS WILL BE IN PLACE THROUGHOUT THE SHIFT. BED IS LOCKED, ALARMED, AND AT THE LOWEST LEVEL.
[2018-05-18 19:54] VITALS: BP_SYST 89
--- NOTE | 2018-05-18 21:47 | NUR ---
IV INSERTION NOTE NEW IV INSERTED FOR PATIENT AT THIS TIME ON HIS RIGHT FOREARM, 20 GAUGE. 10 MLS OF NS FLUSHED WITH NO RESISTANCE. PATIENT TOLERATED WELL. IVF ARE CONNECTED AND ARE RUNNING PER ORDERS AT THIS TIME. PATIENT IS STABLE, NO SIGNS OF RESPIRATORY DISTRESS. CALL LIGHT WITHIN REACH. BED IS LOCKED, ALARMED, AND AT THE LOWEST LEVEL.
[2018-05-18] MEDS: SODIUM CHLORIDE 500 MG TABLET PO SCH (21:57)
[2018-05-18] MEDS: methylPREDNISolone SOD SUCC 40 MG/ML VIAL IVP SCH (21:57)
--- NOTE | 2018-05-18 23:45 | NUR ---
NOTE Addendum: 05/19/18 at 0332 by Yesenia Fournier RN PATIENT IS SLEEPING, STABLE, NO SIGNS OF RESPIRATORY DISTRESS. CALL LIGHT WITHIN REACH. BED IS LOCKED, ALARMED, AND AT THE LOWEST LEVEL.
[2018-05-19 00:35] VITALS: BP_SYST 85
--- NOTE | 2018-05-19 01:44 | NUR ---
NOTE PATIENT IS SLEEPING, STABLE, NO SIGNS OF RESPIRATORY DISTRESS. CALL LIGHT WITHIN REACH. BED IS LOCKED, ALARMED, AND AT THE LOWEST LEVEL.
--- NOTE | 2018-05-19 03:33 | NUR ---
NOTE PATIENT IS SLEEPING, STABLE, NO SIGNS OF RESPIRATORY DISTRESS. CALL LIGHT WITHIN REACH. BED IS LOCKED, ALARMED, AND AT THE LOWEST LEVEL.
[2018-05-19] MEDS: IPRATROPIUM/ALBUTEROL SULFATE 3 ML AMPUL.NEB (DUONEB) INH SCH ×6 (04:21→23:06)
--- NOTE | 2018-05-19 05:24 | NUR ---
NOTE PATIENT IS SLEEPING, STABLE, NO SIGNS OF RESPIRATORY DISTRESS. CALL LIGHT WITHIN REACH. BED IS LOCKED ALARMED AND AT THE LOWEST LEVEL.
--- NOTE | 2018-05-19 06:36 | NUR ---
CLOSING NOTE PATIENT IS SLEEPING, STABLE, NO SIGNS OF RESPIRATORY DISTRESS. CALL LIGHT WITHIN EACH. BED IS LOCKED ALARMED AND AT THE LOWEST LEVEL. WILL CONTINUE TO MONITOR CLOSELY UNTIL SHIFT REPORT IS GIVEN AT BEDSIDE TO AM NURSE. ALL NEEDS MET. FALL, AND SAFETY PRECAUTIONS ARE IN PLACE THROUGHOUT THE SHIFT.
[2018-05-19 07:47] LABS: BASOPHILS % (AUTO) 0.2 % (0.0-2.0); EOSINOPHILS % (AUTO) 0.1 % (0.0-4.0); HEMATOCRIT 37.3 % (36-54); HEMOGLOBIN 12.8 g/dL (14.0-18.0); LYMPHOCYTES # (AUTO) 0.4 K/uL (1.0-5.5); LYMPHOCYTES % (AUTO) 5.3 % (20.5-51.5); MEAN CORPUSCULAR HEMOGLOBIN 35 pg (27-31); MEAN CORPUSCULAR HGB CONC 34 % (32-36); MEAN CORPUSCULAR VOLUME 102 fL (79.0-98.0); MONOCYTES # (AUTO) 0.1 K/uL (0.0-1.0); MONOCYTES % (AUTO) 1.3 % (1.7-9.3); NEUTROPHILS # (AUTO) 6.8 K/uL (1.8-7.7); PLATELET COUNT (AUTO) 83 K/uL (130-430); RED BLOOD CELL COUNT(AUTO) 3.67 MIL/uL (4.2-6.2); RED CELL DISTRIBUTION WIDTH 14.1 % (9.0-15.0); WHITE BLOOD COUNT (AUTO) 7.3 K/uL (4.8-10.8)
[2018-05-19 08:00] VITALS: BP_SYST 108
--- NOTE | 2018-05-19 08:15 | NUR ---
INITIAL NOTE PT SITTING UP IN BED, RECEIVING BREATHING TREATMENT AT THIS TIME. AAOX3, NO S/S OF ACUTE DISTRESS OR PAIN, VSS. PLAN OF CARE AND SAFETY PRECAUTIONS DISCUSSED, PT VERBALIZED UNDERSTANDING. CALL LIGHT WITHIN REACH, BED ALARM ON, WILL FOLLOW UP
[2018-05-19] MEDS: SODIUM CHLORIDE 500 MG TABLET PO SCH ×2 (08:31→22:10)
[2018-05-19] MEDS: CHOLECALCIFEROL (VITAMIN D-3) 400 UNIT TABLET PO SCH (08:31)
[2018-05-19] MEDS: ASPIRIN 325 MG TABLET (ECOTRIN) PO SCH (08:32)
[2018-05-19] MEDS: FERROUS SULFATE 325 MG TABLET.DR PO SCH ×2 (08:32→22:10)
[2018-05-19] MEDS: PANTOPRAZOLE SODIUM 40 MG TAB PO SCH (08:32)
[2018-05-19] MEDS: CARVEDILOL 3.125 MG TABLET (COREG) PO SCH ×2 (08:32→17:36)
[2018-05-19] MEDS: ATORVASTATIN 20 MG TABLET PO SCH (08:32)
[2018-05-19] MEDS: methylPREDNISolone SOD SUCC 40 MG/ML VIAL IVP SCH ×2 (08:32→22:09)
[2018-05-19] MEDS: ENOXAPARIN SODIUM 30 MG/0.3 ML SYRINGE SUBCUT SCH (08:33)
[2018-05-19 08:38] LABS: ALBUMIN 3.3 g/dL (3.4-4.8); CALCIUM 9.4 mg/dL (8.4-11.0); CREATININE 1.56 mg/dL (0.55-1.30); POTASSIUM 5.6 mmol/L (3.5-5.1); TOTAL BILIRUBIN 0.4 mg/dL (0.0-1.0)
[2018-05-19] MEDS ORDERED: ENOXAPARIN SODIUM 30 MG/0.3 ML SYRINGE SUBCUT SCH (09:00)
[2018-05-19] MEDS: NACL 0.9% 1,000 ML IV SCH ×3 (09:47→22:10)
--- NOTE | 2018-05-19 09:55 | NUR ---
IV FLUID BAG CHANGED PT SITTING UP IN BED, WATCHING TV, DENIES ANY NEEDS AT THIS TIME. IV FLUID BAG CHANGED AND IVF CONTINUED, IV SITE TO RFA PATENT AND INTACT, CALL LIGHT WITHIN REACH, WILL FOLLOWUP
--- NOTE | 2018-05-19 10:45 | NUR ---
CONSULT PULMONOLOGY COPD DR ESPINOZA [phone] DR ESPINOZA IS ROUNDING INFORMED OF CONSULT BY ERIS MENDOSA
--- NOTE | 2018-05-19 10:49 | NUR ---
CONSULT RENAL RENAL FAILURE DR DELGADO [phone] S/W [facility]
[2018-05-19 11:18] LABS: NEUTROPHILS % (AUTO) 93.1 % (40.0-70.0)
[2018-05-19] MEDS ORDERED: THIAMINE HCL 100 MG TABLET PO ONE (11:30)
--- NOTE | 2018-05-19 12:15 | NUR ---
ADMINISTERED INITIAL DOSE OF THIAMINE, PT WAS LAYING TO SIDE IN BED RESTING, EASY TO AROUSE, PT STATES HE WAS JUST RESTING BEFORE LUNCH WAS PASSED. PT EDUCATED REGARDING NEW MEDICATION, VERBALIZED UNDERSTANDING, CALL LIGHT WITHIN REACH, WILL FOLLOW UP
[2018-05-19 12:45] VITALS: BP_SYST 96
--- NOTE | 2018-05-19 14:13 | NUR ---
ROUNDS PT SITTING TO SIDE OF BED, SPEAKING WITH VOLUNTEER. NO S/S OF DISTRESS OR SOB. CALL LIGHT WITHIN REACH, WILL FOLLOW UP
[2018-05-19] MEDS ORDERED: MAGNESIUM SULFATE 50 ML IV ONE (16:00)
[2018-05-19] MEDS ORDERED: SODIUM POLYSTYRENE SULFONATE 15 GM/60 ML UDBTL PO ONE (16:15)
--- NOTE | 2018-05-19 16:40 | NUR ---
MEDICATION EDUCATION AND ADMINISTRATION PT EDUCATED REGARDING MAGNESIUM RIDER AND KAYEXALATE, PT VERBALIZED UNDERSTANDING, AND ADMINISTERED
[2018-05-19 17:08] VITALS: BP_SYST 92
--- NOTE | 2018-05-19 18:48 | NUR ---
CLOSING NOTE PT LAYING TO SIDE IN BED, AWAKE, WATCHING TV. NO S/S OF ACUTE DISTRESS OR PAIN. IVF FLUID INFUSING AT ORDERED RATE, IV SITE PATENT AND INTACT, NO S/S OF INFILTRATION NOTED. ALL NEEDS ATTENDED TO THROUGHOUT SHIFT, SAFETY PRECAUTIONS MAINTAINED, WILL GIVE REPORT TO FOLLOWING SHIFT
[2018-05-19 20:58] VITALS: BP_SYST 109
[2018-05-19] MEDS ORDERED: LEVOFLOXACIN 250 MG/D5W 50 ML IV SCH (21:00)
--- NOTE | 2018-05-19 22:35 | NUR ---
PATIENT AWAKE ALERT SITTING UP IN BED NEBULIZER MED - NEB BREATHING TREATMENT IN PROGRESS D/T COPD .
[2018-05-20] VITALS: BP_SYST 112
--- NOTE | 2018-05-20 | NUR ---
ASSIST PATIENT OUT OF BED AMBULATES NEEDED BRP , ACTIVITY TOLERATED .
[2018-05-20] MEDS: IPRATROPIUM/ALBUTEROL SULFATE 3 ML AMPUL.NEB (DUONEB) INH SCH ×3 (03:00→11:03)
--- NOTE | 2018-05-20 03:59 | NUR ---
HOURLY ROUNDING PATIENT RESTING HOB ELEVATED CALL COLBERT WITH PT , FALL MEASURES EFFECTIVE .
--- NOTE | 2018-05-20 04:02 | NUR ---
LOVENOX 30 MG SUB Q. ORDERED SKIN DRY WARM NO ADVERSE REACTION NOTED SKIN DRY WARM .
--- NOTE | 2018-05-20 04:25 | NUR ---
SAFETY MEASURES IMPLEMENTED AND EFFECTIVE PROCEDURES EXPLAINED PATIENT DOES USE CALL SYSTEM WHEN NEEDED .
[2018-05-20] MEDS: PANTOPRAZOLE SODIUM 40 MG TAB PO SCH (06:50)
[2018-05-20 07:20] LABS: % FREE PSA 37.5 % (.); FREE PSA 0.15 ng/mL; PROSTATE SPECIFIC AG TOTAL 0.4 ng/mL (0.0-4.0)
[2018-05-20 07:21] LABS: POTASSIUM 4.8 mmol/L (3.5-5.1)
[2018-05-20 07:28] LABS: BASOPHILS % (AUTO) 0.1 % (0.0-2.0); HEMATOCRIT 41.5 % (36-54); HEMOGLOBIN 13.6 g/dL (14.0-18.0); LYMPHOCYTES # (AUTO) 0.5 K/uL (1.0-5.5); LYMPHOCYTES % (AUTO) 4.5 % (20.5-51.5); MEAN CORPUSCULAR HEMOGLOBIN 34 pg (27-31); MEAN CORPUSCULAR HGB CONC 33 % (32-36); MEAN CORPUSCULAR VOLUME 104 fL (79.0-98.0); MONOCYTES # (AUTO) 0.7 K/uL (0.0-1.0); MONOCYTES % (AUTO) 5.8 % (1.7-9.3); NEUTROPHILS # (AUTO) 10.5 K/uL (1.8-7.7); NEUTROPHILS % (AUTO) 89.6 % (40.0-70.0); PLATELET COUNT (AUTO) 74 K/uL (130-430); RED BLOOD CELL COUNT(AUTO) 3.98 MIL/uL (4.2-6.2); RED CELL DISTRIBUTION WIDTH 14.4 % (9.0-15.0); WHITE BLOOD COUNT (AUTO) 11.7 K/uL (4.8-10.8)
--- NOTE | 2018-05-20 08:06 | NUR ---
INITIAL NOTE PT NOTED RETURNING TO BED AFTER USING RESTROOM, GAIT STEADY, NO C/O PAIN OR DISCOMFORT. IVF INFUSING TO RFA AT ORDERED RATE, NO S/S OF INFILTRATION NOTED. PLAN OF CARE AND SAFETY PRECAUTIONS DISCUSSED, PT VERBALIZED UNDERSTANDING. CALL LIGHT WITHIN REACH, WILL FOLLOW UP
[2018-05-20 08:14] VITALS: BP_SYST 107
[2018-05-20] MEDS: NACL 0.9% 1,000 ML IV SCH (08:30)
[2018-05-20] MEDS: FERROUS SULFATE 325 MG TABLET.DR PO SCH (08:49)
[2018-05-20] MEDS: methylPREDNISolone SOD SUCC 40 MG/ML VIAL IVP SCH (08:49)
[2018-05-20] MEDS: CHOLECALCIFEROL (VITAMIN D-3) 400 UNIT TABLET PO SCH (08:49)
[2018-05-20] MEDS: ASPIRIN 325 MG TABLET (ECOTRIN) PO SCH (08:50)
[2018-05-20] MEDS: ATORVASTATIN 20 MG TABLET PO SCH (08:50)
[2018-05-20] MEDS: SODIUM CHLORIDE 500 MG TABLET PO SCH (08:50)
[2018-05-20] MEDS: CARVEDILOL 3.125 MG TABLET (COREG) PO SCH (08:51)
[2018-05-20] MEDS: ENOXAPARIN SODIUM 30 MG/0.3 ML SYRINGE SUBCUT SCH (08:52)
[2018-05-20] MEDS ORDERED: THIAMINE HCL 100 MG TABLET PO SCH (09:00)
--- NOTE | 2018-05-20 10:00 | NUR ---
DR CHAWLA MAKING ROUNDS NEW ORDER RECEIVED FOR DISCHARGE IS CLEARED BY DR ESPINOZA. WILL CALL
--- NOTE | 2018-05-20 10:15 | NUR ---
DR ESPINOZA MADE AWARE OF DISCHARGE ORDER IN PERSON, STATED PT IS CLEARED FROM PULMONARY STAND POINT, PT MAY BE DISCHARGED. Addendum: 05/20/18 at 1312 by Mary Nieves RN PATIENT MADE AWARE HE IS CLEARED FOR DISCHARGE, HE STATED HE WOULD NOT HAVE A RIDE UNTIL 1300, PT MADE AWARE THAT HIS PAPERWORK WOULD BE READY AT 1300 FOR DISCHARGE HE CAN ARRANGE TRANSPORTATION WITH HIS SISTER
[2018-05-20 10:30] VITALS: BP_SYST 106; BP_SYST 107
--- NOTE | 2018-05-20 13:00 | NUR ---
TRANSITION OF CARE/ DISCHARGE INSTRUCTIONS PT EDUCATED REGARDING PRESCRIPTION AND TO ARRANGE APPOINTMENT TO FOLLOW UP WITH PRIMARY CARE PROVIDER. PT STATED HE HAD ALREADY MADE AN APPOINTMENT TO SEE PCP. IV SIT REMOVED NO ACTIVE BLEEDING NOTED. PT CALLED SISTER TO MAKE AWARE HE IS READY, AWAITING CHEMIST INSTRUMENTATION
[2018-05-20 13:08] VITALS: BP_SYST 106
[2018-05-20] MEDS ORDERED: PREDNISONE 20 MG TABLET PO SCH (21:00)
== END 2018-05-20 13:29 | disposition home or self-care (01) | DRG 140 ==
LOC: SED 15:48 → STU 20:17
PROVIDERS: ADMIT Internal Medicine; ATTEND Internal Medicine
DX: J44.1 Chronic obstructive pulmonary disease with (acute) exacerbation (principal); N17.0 Acute kidney failure with tubular necrosis; E87.1 Hypo-osmolality and hyponatremia; K70.30 Alcoholic cirrhosis of liver without ascites; E87.5 Hyperkalemia; I10 Essential (primary) hypertension; E78.5 Hyperlipidemia, unspecified; F10.20 Alcohol dependence, uncomplicated; F17.210 Nicotine dependence, cigarettes, uncomplicated; Z87.11 Personal history of peptic ulcer disease; Z87.81 Personal history of (healed) traumatic fracture; Z79.899 Other long term (current) drug therapy
CPT/HCPCS: 36415; 71045; 80048; 80053; 82140-TC; 82533; 83930-TC; 83935-TC; 84443-TC; 85007; 85025; 85027; 87040-TC; 93005; 94640; 94760; 96361; 96365; 99285; G0103; J1030; J1650; J1956; J2543; J3475; J7030; J7620

== ENCOUNTER 2018-06-20 22:06 | Inpatient (IN) | payer MEDICAID ==
[~2018-06-20] VITALS: Ht 180.3 cm; Wt 59.0 kg
[~2018-06-20 22:06] MED LIST changes: -VANC250C11 PO
[2018-06-20 22:25] VITALS: BP_SYST 139
[2018-06-20] MEDS ORDERED: KETOROLAC TROMETHAMINE 30 MG VIAL IVP ONE (22:45)
[2018-06-20 22:58] LABS: BASOPHILS # (AUTO) 0.1 K/uL (0.0-0.2); BASOPHILS % (AUTO) 0.5 % (0.0-2.0); EOSINOPHILS % (AUTO) 0.4 % (0.0-4.0); HEMATOCRIT 49.9 % (36-54); HEMOGLOBIN 16.9 g/dL (14.0-18.0); LYMPHOCYTES # (AUTO) 2.1 K/uL (1.0-5.5); LYMPHOCYTES % (AUTO) 17.2 % (20.5-51.5); MEAN CORPUSCULAR HEMOGLOBIN 36 pg (27-31); MEAN CORPUSCULAR HGB CONC 34 % (32-36); MEAN CORPUSCULAR VOLUME 106 fL (79.0-98.0); MONOCYTES # (AUTO) 1.1 K/uL (0.0-1.0); NEUTROPHILS # (AUTO) 8.7 K/uL (1.8-7.7); NEUTROPHILS % (AUTO) 72.9 % (40.0-70.0); PLATELET COUNT (AUTO) 190 K/uL (130-430); RED BLOOD CELL COUNT(AUTO) 4.72 MIL/uL (4.2-6.2); RED CELL DISTRIBUTION WIDTH 15.2 % (9.0-15.0)
[2018-06-20 23:08] LABS: CALCIUM 11.1 mg/dL (8.4-11.0); CREATININE 1.62 mg/dL (0.55-1.30)
[2018-06-20 23:14] LABS: ALBUMIN 4.6 g/dL (3.4-4.8); TOTAL BILIRUBIN 1.1 mg/dL (0.0-1.0)
[2018-06-20] MEDS ORDERED: SODIUM POLYSTYRENE SULFONATE 15 GM/60 ML UDBTL PO ONE (23:15)
[2018-06-20 23:18] LABS: POTASSIUM 5.9 mmol/L (3.5-5.1)
[2018-06-20] MEDS ORDERED: NACL 0.9% 1,000 ML IV ONE (23:45)
[2018-06-21] VITALS (7 sets, daily range): BP systolic 105–146
[2018-06-21] MEDS ORDERED: CALCIUM CHLORIDE 1 GM/10 ML DISP.SYRIN (14 mEq Ca++/SYR) IVP ONE
[2018-06-21] MEDS ORDERED: ONDANSETRON HCL 4 MG/2 ML VIAL IVP PRN ×2 (00:45)
[2018-06-21] MEDS ORDERED: TEMAZEPAM 15 MG CAPSULE PO PRN (00:45)
[2018-06-21] MEDS ORDERED: NACL 0.9% 1,000 ML IV ONE (00:45)
[2018-06-21] MEDS ORDERED: ACETAMINOPHEN 325 MG TABLET PO PRN (00:45)
[2018-06-21] MEDS ORDERED: HYDROcodone/ACETAMIN 10-325 MG TAB PO PRN (00:45)
[2018-06-21] MEDS ORDERED: METOCLOPRAMIDE HCL 10 MG/2 ML VIAL IVP PRN (00:45)
[2018-06-21] MEDS ORDERED: SODIUM POLYSTYRENE SULFONATE 15 GM/60 ML UDBTL PO ONE (00:45)
[2018-06-21] MEDS ORDERED: HYDROcodone/ACETAMIN 5-325 MG TAB (NORCO/ VICODIN) PO PRN (00:45)
[2018-06-21] MEDS ORDERED: ALBUTEROL SULFATE 0.083% 2.5 MG/3 ML VIAL.NEB INH PRN (00:45)
[2018-06-21 06:15] LABS: BASOPHILS % (AUTO) 0.4 % (0.0-2.0); EOSINOPHILS % (AUTO) 0.3 % (0.0-4.0); HEMOGLOBIN 15.7 g/dL (14.0-18.0); LYMPHOCYTES # (AUTO) 1.4 K/uL (1.0-5.5); LYMPHOCYTES % (AUTO) 16.1 % (20.5-51.5); MEAN CORPUSCULAR HEMOGLOBIN 36 pg (27-31); MEAN CORPUSCULAR HGB CONC 33 % (32-36); MEAN CORPUSCULAR VOLUME 106 fL (79.0-98.0); MONOCYTES # (AUTO) 0.8 K/uL (0.0-1.0); NEUTROPHILS # (AUTO) 6.6 K/uL (1.8-7.7); NEUTROPHILS % (AUTO) 74.2 % (40.0-70.0); PLATELET COUNT (AUTO) 155 K/uL (130-430); RED BLOOD CELL COUNT(AUTO) 4.42 MIL/uL (4.2-6.2); RED CELL DISTRIBUTION WIDTH 15.2 % (9.0-15.0); WHITE BLOOD COUNT (AUTO) 8.8 K/uL (4.8-10.8)
[2018-06-21 06:41] LABS: CALCIUM 11.4 mg/dL (8.4-11.0); CREATININE 1.37 mg/dL (0.55-1.30); POTASSIUM 5.2 mmol/L (3.5-5.1); TOTAL BILIRUBIN 0.9 mg/dL (0.0-1.0)
[2018-06-21] MEDS: ATORVASTATIN 20 MG TABLET PO SCH (08:58)
[2018-06-21] MEDS: ASPIRIN 325 MG TABLET (ECOTRIN) PO SCH (08:58)
[2018-06-21] MEDS ORDERED: CARVEDILOL 3.125 MG TABLET (COREG) PO SCH (09:00)
[2018-06-21] MEDS ORDERED: CARVEDILOL 3.125 MG TABLET (COREG) PO ONE (09:00)
[2018-06-21] MEDS ORDERED: FOLIC ACID 1 MG TABLET PO SCH (09:00)
[2018-06-21] MEDS: FAMOTIDINE 20 MG TABLET PO SCH ×2 (09:40→20:55)
[2018-06-21] MEDS: THIAMINE HCL 100 MG TABLET PO SCH (09:41)
[2018-06-21] MEDS: CARVEDILOL 3.125 MG TABLET (COREG) PO SCH (20:55)
[2018-06-22 00:20] VITALS: BP_SYST 94
[2018-06-22 06:52] LABS: ALBUMIN 3.7 g/dL (3.4-4.8); CALCIUM 10.3 mg/dL (8.4-11.0); CREATININE 1.01 mg/dL (0.55-1.30); POTASSIUM 4.6 mmol/L (3.5-5.1); TOTAL BILIRUBIN 0.6 mg/dL (0.0-1.0)
[2018-06-22 08:00] VITALS: BP_SYST 118
[2018-06-22] MEDS: ASPIRIN 325 MG TABLET (ECOTRIN) PO SCH (08:28)
[2018-06-22] MEDS: CARVEDILOL 3.125 MG TABLET (COREG) PO SCH (08:29)
[2018-06-22] MEDS: THIAMINE HCL 100 MG TABLET PO SCH (08:29)
[2018-06-22] MEDS: FAMOTIDINE 20 MG TABLET PO SCH (08:29)
[2018-06-22] MEDS: ATORVASTATIN 20 MG TABLET PO SCH (08:29)
[2018-06-22] MEDS ORDERED: FOLIC ACID 1 MG TABLET PO SCH (09:00)
[2018-06-22 09:36] VITALS: BP_SYST 118
== END 2018-06-22 10:20 | disposition home or self-care (01) | DRG 422 ==
LOC: SED 22:06 → STU 06-21 00:32
PROVIDERS: ADMIT Internal Medicine; ATTEND Internal Medicine
DX: E87.5 Hyperkalemia (principal); E86.0 Dehydration; N17.0 Acute kidney failure with tubular necrosis; K70.30 Alcoholic cirrhosis of liver without ascites; E78.5 Hyperlipidemia, unspecified; F17.210 Nicotine dependence, cigarettes, uncomplicated; I10 Essential (primary) hypertension; J44.9 Chronic obstructive pulmonary disease, unspecified; T50.0X5A Adverse effect of mineralocorticoids and their antagonists, initial encounter; Y92.89 Other specified places as the place of occurrence of the external cause; Z79.899 Other long term (current) drug therapy; Z79.82 Long term (current) use of aspirin
CPT/HCPCS: 36415; 71045; 73502; 80053; 84484; 85025; 87081; 93005; 96361; 96374; 96375; 99285; J1885; J7030; J7613

== ENCOUNTER 2018-07-10 10:58 | Inpatient (IN) | payer MEDICAID ==
[~2018-07-10] VITALS: Ht 180.3 cm; Wt 59.0 kg
[~2018-07-10 10:58] MED LIST changes: -SPIR50TA5 PO
[2018-07-10 11:00] VITALS: BP_SYST 132
--- NOTE | 2018-07-10 11:00 | NUR ---
Pt placed in bed 3
--- NOTE | 2018-07-10 11:18 | NUR ---
ER Dr. NUNES at bedside examining patient.
--- NOTE | 2018-07-10 11:25 | NUR ---
PATIENT SITTING UP ON CHAIR. AAOx4. RESPIRATIONS EVEN AND UNLABORED. SPEAKING FULL SENTENCES. DENIES OF ANY CHEST PAIN. PT WITH C/O SOB AND PRODUCTIVE COUGH SINCE LAST NIGHT. NO FEVERS. +NAUSEA. NO VOMITING. PATIENT SITTING COMFORTABLY ON BED. PLACED ON O2 VIA NC @ 2L/MIN. TOLERATING WELL. REST, RELAXATION, AND DEEP BREATHING ENCOURAGED. WILL CONTINUE TO MONITOR.
[2018-07-10] MEDS ORDERED: KETOROLAC TROMETHAMINE 15 MG VIAL IVP ONE (11:30)
[2018-07-10] MEDS ORDERED: NACL 0.9% 1,000 ML IV ONE (11:30)
--- NOTE | 2018-07-10 11:55 | NUR ---
# 20 gauge angiocath placed to RAC. Use of asceptic technique. Opsite placed over site. Blood return noted. Flushed with 10 cc of normal saline. No evidence of infiltration noted. Patient tolerated well.
--- NOTE | 2018-07-10 11:59 | NUR ---
Laboratory at bedside.
--- NOTE | 2018-07-10 12:07 | NUR ---
Pt medicated for 5/10 chest pain. Pt tolerated well; will continue to monitor.
[2018-07-10 12:24] LABS: BASOPHILS % (AUTO) 0.2 % (0.0-2.0); EOSINOPHILS % (AUTO) 0.1 % (0.0-4.0); HEMATOCRIT 49.7 % (36-54); HEMOGLOBIN 16.2 g/dL (14.0-18.0); LYMPHOCYTES # (AUTO) 1.2 K/uL (1.0-5.5); LYMPHOCYTES % (AUTO) 7.3 % (20.5-51.5); MEAN CORPUSCULAR HEMOGLOBIN 35 pg (27-31); MEAN CORPUSCULAR HGB CONC 33 % (32-36); MEAN CORPUSCULAR VOLUME 107 fL (79.0-98.0); MONOCYTES % (AUTO) 5.9 % (1.7-9.3); NEUTROPHILS # (AUTO) 14.9 K/uL (1.8-7.7); PLATELET COUNT (AUTO) 227 K/uL (130-430); RED BLOOD CELL COUNT(AUTO) 4.67 MIL/uL (4.2-6.2); WHITE BLOOD COUNT (AUTO) 17.1 K/uL (4.8-10.8)
--- NOTE | 2018-07-10 12:30 | NUR ---
PATIENT SITTING UP SEMI-TORRES'S ON GURNEY. ASLEEP, BUT EASILY AROUSABLE. RESPIRATIONS EVEN AND UNLABORED. DENIES OF ANY SOB OR CHEST PAIN. PT IN NO ACUTE DISTRESS AND IN GOOD CONDITION. AWAITING LAB RESULTS. WILL CONTINUE TO MONITOR.
[2018-07-10 12:36] LABS: CALCIUM 9.4 mg/dL (8.4-11.0); CREATININE 2.76 mg/dL (0.55-1.30)
[2018-07-10 12:42] LABS: PROTHROMBIN TIME 9.7 SECS (9.5-12.5); TOTAL BILIRUBIN 0.7 mg/dL (0.0-1.0)
[2018-07-10 12:44] LABS: POTASSIUM 7.4 mmol/L (3.5-5.1)
[2018-07-10 13:01] LABS: BILIRUBIN,URINE 2+ (NEGATIVE); BLOOD, URINE NEGATIVE (NEGATIVE); CLARITY/URINE CLEAR (CLEAR); COLOR,URINE YELLOW (YELLOW); GLUCOSE,URINE NEGATIVE (NEGATIVE); KETONES,URINE TRACE (NEGATIVE); LEUKOCYTE ESTERASE ,URINE NEGATIVE (NEGATIVE); NITRITE, URINE NEGATIVE (NEGATIVE); PROTEIN URINE NEGATIVE (NEGATIVE); UROBILINOGEN,URINE 0.2 (0.2-1.0)
[2018-07-10] MEDS ORDERED: DEXTROSE 50% JECT 50 ML DISP.SYRIN IVP ONE (13:15)
[2018-07-10] MEDS ORDERED: cefTRIAXone 1 GM IVPB PREMIX 50 ML IV ONE (13:15)
[2018-07-10] MEDS ORDERED: CALCIUM GLUCONATE 1 GM in NS 100 ML IV ONE (13:15)
[2018-07-10] MEDS ORDERED: SODIUM BICARBONATE 8.4% JECT 50 MEQ/50 ML SYRINGE IVP ONE (13:15)
[2018-07-10] MEDS ORDERED: NACL 0.9% 2,000 ML IV ONE (13:15)
[2018-07-10] MEDS ORDERED: DEXAMETHASONE SOD PHOSPHATE 4 MG/ML VIAL IVP ONE (13:15)
[2018-07-10] MEDS ORDERED: INSULIN REGULAR, HUMAN 10 UNITS/0.1 ML INJ IVP ONE (13:15)
[2018-07-10] MEDS ORDERED: CALCIUM GLUCONATE 1 GM/10 ML VIAL ONE (13:21)
[2018-07-10 13:25] LABS: BACTERIA,URINE FEW /HPF (None Seen); RBC,URINE 0-3 /HPF (0-3); WBC,URINE 0-3 /HPF (0-3)
[2018-07-10 13:26] LABS: FINE GRANULAR CASTS,URINE 0-10 /LPF (None Seen); MUCUS,URINE 1+ /LPF (None Seen)
--- NOTE | 2018-07-10 13:28 | NUR ---
Dr Contreras at bedside explaining results.
--- NOTE | 2018-07-10 13:30 | NUR ---
PATIENT RESTING COMFORTABLY IN [facility]. PT STABLE AND IN NO ACUTE DISTRESS. NO CHANGE IN CONDITION.
[2018-07-10 13:47] LABS: NEUTROPHILS % (AUTO) 86.5 % (40.0-70.0)
[2018-07-10] MEDS ORDERED: ALEN10TA6 PO (13:51)
[2018-07-10] MEDS ORDERED: SPIR50TA PO (13:51)
[2018-07-10] MEDS ORDERED: CEPH-568 PO (13:51)
[2018-07-10] MEDS ORDERED: BUDE6HFA INH (13:51)
[2018-07-10] MEDS ORDERED: ALBMDI INH (13:51)
--- NOTE | 2018-07-10 13:52 | NUR ---
Medication reconciliation completed with information provided by pt. Any prior medication reconciliation on file was reviewed and corrected.
[2018-07-10] MEDS ORDERED: ALBUTEROL SULFATE 0.083% 2.5 MG/3 ML VIAL.NEB INH PRN (14:15)
[2018-07-10] MEDS ORDERED: ONDANSETRON HCL 4 MG/2 ML VIAL IVP PRN (14:15)
[2018-07-10] MEDS ORDERED: SODIUM POLYSTYRENE SULFONATE 15 GM/60 ML UDBTL PO ONE (14:15)
[2018-07-10] MEDS ORDERED: ACETAMINOPHEN 500 MG TABLET PO PRN (14:15)
--- NOTE | 2018-07-10 14:25 | NUR ---
Patient will be admitted to care of DR. BARBER. Admitted to TELEMETRY unit. Will go to room 111B. Belongings list completed. Summary report printed. Report will be given at bedside. PATIENT IN GOOD CONDITION, NO ACUTE DISTRESS, DENIES OF ANY CHEST PAIN OR SOB, VITAL SIGNS STABLE.
--- NOTE | 2018-07-10 14:36 | NUR ---
ADMIT NOTE Received pt from ER to the floor with a diagnosis of HYPER KALEMIA, HYPONATREMIA. Admission process initiated. patient oriented to pain management, safety and call light-teach back done.
--- NOTE | 2018-07-10 14:40 | NUR ---
CONSULTATION PAGED/CALLED Reason for Consultation: [] HYPONATREMIA, ARF Person Who was Notified: [] FRANCESCO Consulting Physician: [] DR Tennille DELGADO Technical Services Librarian Specialty: [] NEPHROLOGY Ordering Physician: [] DR PABLO BARBER
--- NOTE | 2018-07-10 14:44 | NUR ---
CONSULTATION PAGED/CALLED Reason for Consultation: [] COPD EXAC Person Who was Notified: [] DR ESPINOZA Consulting Physician: [] DR ESPINOZA Child Care Attendant School Specialty: [] PULMO Ordering Physician: [] DR Kathy BARBER
[2018-07-10 14:46] VITALS: BP_SYST 126
[2018-07-10] MEDS ORDERED: LEVOFLOXACIN 250 MG/D5W 50 ML IV SCH (15:00)
[2018-07-10 15:14] LABS: ANION GAP 20 (5-15); CALCIUM 10.1 mg/dL (8.4-11.0); CREATININE 2.78 mg/dL (0.55-1.30); GLUCOSE 76 mg/dL (70-99); UREA NITROGEN, BLOOD 68 mg/dL (8-21)
[2018-07-10 15:17] LABS: GFR AFRICAN AMERICAN 31 mL/min (>90)
[2018-07-10 15:44] LABS: ALANINE AMINOTRANSFERASE 29 U/L (12-78); ALBUMIN 4.8 g/dL (3.4-4.8); ASPARTATE AMINOTRANSFERASE 28 U/L (10-37); SODIUM SERUM 115 mmol/L (136-145); THYROID STIMULATING HORMONE < 0.01 uIu/mL (0.34-4.82); TOTAL BILIRUBIN 0.7 mg/dL (0.0-1.0)
[2018-07-10 15:45] LABS: POTASSIUM 7.5 mmol/L (3.5-5.1)
[2018-07-10 15:46] LABS: CHLORIDE 78 mmol/L (98-107)
--- NOTE | 2018-07-10 15:51 | NUR ---
Patient's critical lab value is informed to Dr. Mcgregor. He states he will see the patient.
[2018-07-10 16:00] VITALS: BP_SYST 106
--- NOTE | 2018-07-10 17:00 | NUR ---
Dr. Mcgregor is at bedside. Orders are given, and states run both banana bag and NS at the same time.
[2018-07-10] MEDS: NACL 0.9% 1,000 ML IV SCH (17:40)
[2018-07-10] MEDS: FOLIC ACID 1 MG, THIAMINE HCL 100 MG, MAGNESIUM SULFATE 1 GM, MVI 10 ML in NACL 0.9% 1,... IV SCH (17:40)
--- NOTE | 2018-07-10 18:30 | NUR ---
Patient is eating, tolerated without distress.
[2018-07-10] MEDS: MONTELUKAST 10 MG TABLET PO SCH (19:00)
--- NOTE | 2018-07-10 19:15 | NUR ---
OPENING NOTES RECEIVED PATIENT IN BED AAO X4. DENIES ANY PAIN . BREATHING UNLABORED. IV FLUIDS INFUSING ORDERED WITH IV LINES INTACT. PLAN OF CARE REVIEWED WITH PATIENT. CALL LIGHT WITH IN REACH. BED ALARM ON.
[2018-07-10] MEDS: ALBUTEROL SULFATE 0.083% 2.5 MG/3 ML VIAL.NEB INH SCH (20:14)
[2018-07-10] MEDS: IPRATROPIUM BROM 0.5 MG/2.5 ML VIAL.NEB (ATROVENT) INH SCH (20:14)
[2018-07-10] MEDS: CARVEDILOL 3.125 MG TABLET (COREG) PO SCH (21:00)
[2018-07-10 21:38] VITALS: BP_SYST 98
[2018-07-10] MEDS: SODIUM CHLORIDE 500 MG TABLET PO SCH (21:42)
[2018-07-10] MEDS: methylPREDNISolone SOD SUCC 40 MG/ML VIAL IVP SCH (21:43)
--- NOTE | 2018-07-10 21:43 | NUR ---
MED PASS DUE MEDICATIONS GIVEN AND TOLERATED. NO DISTRESS NOTED.
[2018-07-10 23:33] VITALS: BP_SYST 105
--- NOTE | 2018-07-10 23:40 | NUR ---
PATIENT TEMP PATIENT TEMP 96.0 ADDITIONAL BLANKETS PROVIDED TO PATIENT. WILL MONITOR TEMP FOR FURTHER DECLINE.
[2018-07-11 00:11] LABS: CALCIUM 7.4 mg/dL (8.4-11.0); CREATININE 1.47 mg/dL (0.55-1.30); POTASSIUM 4.8 mmol/L (3.5-5.1)
--- NOTE | 2018-07-11 00:24 | NUR ---
ROUNDS PATIENT RESTING IN BED. NO DISTRESS NOTED. TEMP RECHECKED 96.9F
[2018-07-11] MEDS: ALBUTEROL SULFATE 0.083% 2.5 MG/3 ML VIAL.NEB INH SCH ×4 (01:43→19:54)
[2018-07-11] MEDS: IPRATROPIUM BROM 0.5 MG/2.5 ML VIAL.NEB (ATROVENT) INH SCH ×4 (01:44→19:54)
[2018-07-11] MEDS: NACL 0.9% 1,000 ML IV SCH ×3 (02:07→20:30)
--- NOTE | 2018-07-11 03:02 | NUR ---
ROUNDS PATIENT AWAKE WATCHING TV. NO DISTRESS NOTED. IVF CONTINUOUSLY INFUSING ORDERED. IV LINE INTACT. CALL LIGHT WITH IN REACH. BED ALARM ON.
--- NOTE | 2018-07-11 06:50 | NUR ---
CLOSING NOTES PATIENT AWAKE IN BED WATCHING TV. BREATHING UNLABORED. IVF INFUSING ORDERED WITH IV LINE INTACT. PATIENT NEEDS ATTENDED. CALL LIGHT WITH IN REACH. BED ALARM ON.
[2018-07-11 07:09] LABS: PROSTATE SPECIFIC AG TOTAL 0.4 ng/mL (0.0-4.0)
[2018-07-11 07:15] VITALS: BP_SYST 117
--- NOTE | 2018-07-11 07:15 | NUR ---
RN OPENING NOTE RECEIVED SBAR REPORT FROM ENDORSING NURSE AT BEDSIDE. PT EDUCATED ON UNIT SAFETY AND DEMONSTRATED ABILITY TO USE CALL LIGHT, WHICH IS WITHIN REACH. BED IN LOWEST POSITION AND BED ALARM ACTIVE. SEE VS FLOW SHEET
[2018-07-11 07:45] LABS: BASOPHILS % (AUTO) 0.1 % (0.0-2.0); EOSINOPHILS % (AUTO) 0.2 % (0.0-4.0); HEMATOCRIT 34.6 % (36-54); HEMOGLOBIN 11.2 g/dL (14.0-18.0); LYMPHOCYTES # (AUTO) 0.4 K/uL (1.0-5.5); LYMPHOCYTES % (AUTO) 2.5 % (20.5-51.5); MEAN CORPUSCULAR HEMOGLOBIN 35 pg (27-31); MEAN CORPUSCULAR HGB CONC 33 % (32-36); MEAN CORPUSCULAR VOLUME 107 fL (79.0-98.0); MONOCYTES # (AUTO) 0.2 K/uL (0.0-1.0); MONOCYTES % (AUTO) 1.3 % (1.7-9.3); NEUTROPHILS # (AUTO) 14.3 K/uL (1.8-7.7); NEUTROPHILS % (AUTO) 95.9 % (40.0-70.0); PLATELET COUNT (AUTO) 108 K/uL (130-430); RED BLOOD CELL COUNT(AUTO) 3.24 MIL/uL (4.2-6.2); RED CELL DISTRIBUTION WIDTH 13.6 % (9.0-15.0); WHITE BLOOD COUNT (AUTO) 14.9 K/uL (4.8-10.8)
[2018-07-11 07:57] LABS: ALBUMIN 2.8 g/dL (3.4-4.8); CALCIUM 7.6 mg/dL (8.4-11.0); CREATININE 1.09 mg/dL (0.55-1.30); POTASSIUM 4.9 mmol/L (3.5-5.1); TOTAL BILIRUBIN 0.5 mg/dL (0.0-1.0)
[2018-07-11 08:16] LABS: % FREE PSA 27.5 % (.); FREE PSA 0.11 ng/mL
[2018-07-11] MEDS: CARVEDILOL 3.125 MG TABLET (COREG) PO SCH ×2 (08:38→21:00)
[2018-07-11] MEDS: methylPREDNISolone SOD SUCC 40 MG/ML VIAL IVP SCH ×2 (08:38→21:09)
[2018-07-11] MEDS: FOLIC ACID 1 MG TABLET PO SCH (08:38)
[2018-07-11] MEDS: ASPIRIN 325 MG TABLET (ECOTRIN) PO SCH (08:38)
[2018-07-11] MEDS: ATORVASTATIN 20 MG TABLET PO SCH (08:38)
[2018-07-11] MEDS: SODIUM CHLORIDE 500 MG TABLET PO SCH ×2 (08:38→21:10)
[2018-07-11] MEDS: ENOXAPARIN SODIUM 40 MG/0.4 ML SYRINGE SUBCUT SCH (08:39)
--- NOTE | 2018-07-11 08:45 | NUR ---
DR. ESPINOZA (PULSC) AT BEDSIDE NEW ORDERS RECEIVED.
--- NOTE | 2018-07-11 08:53 | NUR ---
DR. BARBER AT BEDSIDE NEW ORDERS RECEIVED
[2018-07-11] MEDS ORDERED: LORazepam 2 MG/ML VIAL IVP PRN (09:15)
[2018-07-11] MEDS ORDERED: chlordiazePOXIDE HCL 25 MG CAPSULE PO ONE (09:30)
--- NOTE | 2018-07-11 12:00 | NUR ---
PLAN OF CARE EDUCATION PROVIDED TO PT AT BEDSIDE
[2018-07-11 12:09] VITALS: BP_SYST 127
--- NOTE | 2018-07-11 13:44 | NUR ---
Discharge Planning: PLANT FACILITIES TECHNICIAN spoke to [facility] Technology Coordinator, Fito ([phone]); Fito states that [facility] will arrange home health care upon discharge.
[2018-07-11] MEDS: chlordiazePOXIDE HCL 25 MG CAPSULE PO SCH ×2 (15:53→21:10)
[2018-07-11 16:02] VITALS: BP_SYST 107
--- NOTE | 2018-07-11 16:42 | NUR ---
DR. DELGADO AT BEDSIDE NEW ORDERS RECEIVED.
[2018-07-11] MEDS ORDERED: FUROSEMIDE 20 MG TABLET PO ONE (16:45)
[2018-07-11] MEDS: LEVOFLOXACIN 500 MG/D5W 100 ML IV SCH (18:00)
[2018-07-11] MEDS: FOLIC ACID 1 MG, THIAMINE HCL 100 MG, MAGNESIUM SULFATE 1 GM, MVI 10 ML in NACL 0.9% 1,... IV SCH (18:01)
[2018-07-11] MEDS: MONTELUKAST 10 MG TABLET PO SCH (18:01)
[2018-07-11 19:00] VITALS: BP_SYST 103
--- NOTE | 2018-07-11 19:00 | NUR ---
change of shift.pt.presents quiescent affect;calm.pt.presents general status stable.respiratory status stable pt.is receiving the iv fluids:ns@100ml/hr alternating w/banana bag;the banana bag is infusing@this hour. call light/telephone placed w/in the pt's reach.
--- NOTE | 2018-07-11 19:10 | NUR ---
ENDORSEMENT SBAR REPORT ENDORSED TO RECEIVING NURSE AT BEDSIDE.
[2018-07-11 20:00] VITALS: BP_SYST 103
--- NOTE | 2018-07-11 20:00 | NUR ---
pt.assessed.v/s assessed;b/p noted low values.pt.asymptomatic.pt.presents quiescent affect;calm,viewing tv programing. i have apprised the pt.that snacks are available w/in the shift.pt.presents no requests@this hour.no c/o pain,nausea.pt. capable to reposition self.call light/telephone placed w/in the pt's reach. Addendum: 07/12/18 at 0152 by Bayron Romero RN i have inspected the urinal;empty/clean.
--- NOTE | 2018-07-11 21:00 | NUR ---
2100p medications administered.pt.presents no requests@this hour.iv fluids infusing.i have inspected the urinal:empty/clean.call light/telephone w/in the w/in pt's reach.
--- NOTE | 2018-07-11 22:00 | NUR ---
pt.assessed.pt.presents quiescent affect;calm,somnolent.i have inspected the urinal;empty,clean. iv fluids infusing.general status stable.respiratory status stable.call light/telephone w/in the pt's reach. Addendum: 07/12/18 at 0156 by Bayron Romero RN pt.capable to reposition self.
--- NOTE | 2018-07-12 | NUR ---
pt.assessed.v/s assessed;q;extrusion die repairer has apprised me that the b/p value present low level.pt.is symptomatic;lucid;no c/o lightheadedness.weakness.to f/u re;b/p.no c/o pain,nausea.iv fluids infusing.i have inspected the urinal;empty; clean.general status stable.respiratory statu stable.pt,.capable to reposition self.call light/telephone w/in the pt's reach.
--- NOTE | 2018-07-12 00:15 | NUR ---
ROUNDING NOTE PT IS SLEEPING IN BED. NO NEEDS AT THIS TIME. IVF RUNNING PER ORDERS. CALL LIGHT WITH PT. WILL CONTINUE TO MONITOR.
[2018-07-12 00:30] VITALS: BP_SYST 80
--- NOTE | 2018-07-12 02:00 | NUR ---
pt.assessed.pt.preset quiescent affect;calm,somnolent.iv fluids infusing.i have inspected the urinal:empty/clean. general status stable.respiratory status stable.pt.capable to reposition self.call light/telephone w/in the pt's reach.
--- NOTE | 2018-07-12 02:30 | NUR ---
pt.has requested ice-water,cranberry juice,saltine crackers.i have provide the snacks. no additional requests.no c/o pain,nausea nor sensation of coldness.
--- NOTE | 2018-07-12 04:00 | NUR ---
pt.assessed.pt.presents quiescent affect;calm,somnolent.i have inspected the urinal;empty,clean. iv fluids infusing.general status stable.respiratory status stable.call light/telephone w/in the pt's reach.
[2018-07-12] MEDS: NACL 0.9% 1,000 ML IV SCH ×2 (06:15→08:31)
--- NOTE | 2018-07-12 06:15 | NUR ---
pt.assessed.pt.presents quiescent affect;calm.pt.viewing tv programming.no c/o pain,nausea.pt.had requested ice water/ crackers.i have provide the snacks.general status stable.respiratory status stable;pt.capable to reposition self.iv fluids infusing. call light/telephone w/in the pt's reach.
[2018-07-12] MEDS: ALBUTEROL SULFATE 0.083% 2.5 MG/3 ML VIAL.NEB INH SCH ×3 (07:20→19:53)
[2018-07-12] MEDS: IPRATROPIUM BROM 0.5 MG/2.5 ML VIAL.NEB (ATROVENT) INH SCH ×3 (07:20→19:53)
[2018-07-12 07:54] LABS: BASOPHILS % (AUTO) 0.2 % (0.0-2.0); HEMATOCRIT 35.9 % (36-54); HEMOGLOBIN 12.3 g/dL (14.0-18.0); LYMPHOCYTES # (AUTO) 0.3 K/uL (1.0-5.5); LYMPHOCYTES % (AUTO) 2.1 % (20.5-51.5); MEAN CORPUSCULAR HEMOGLOBIN 36 pg (27-31); MEAN CORPUSCULAR HGB CONC 34 % (32-36); MEAN CORPUSCULAR VOLUME 105 fL (79.0-98.0); MONOCYTES # (AUTO) 0.7 K/uL (0.0-1.0); MONOCYTES % (AUTO) 4.3 % (1.7-9.3); NEUTROPHILS # (AUTO) 14.9 K/uL (1.8-7.7); NEUTROPHILS % (AUTO) 93.4 % (40.0-70.0); PLATELET COUNT (AUTO) 98 K/uL (130-430); RED BLOOD CELL COUNT(AUTO) 3.43 MIL/uL (4.2-6.2); RED CELL DISTRIBUTION WIDTH 13.8 % (9.0-15.0); WHITE BLOOD COUNT (AUTO) 15.9 K/uL (4.8-10.8)
[2018-07-12 08:00] VITALS: BP_SYST 99
--- NOTE | 2018-07-12 08:05 | NUR ---
Initial notes; Patient awake, alert and oriented. Stable. I.V. access patent. Discussed plan of care. Safety measures in placed. Call light within reach. Report received at bedside.
[2018-07-12 08:06] LABS: CALCIUM 8.1 mg/dL (8.4-11.0); CREATININE 1.01 mg/dL (0.55-1.30); POTASSIUM 4.1 mmol/L (3.5-5.1)
[2018-07-12 08:13] LABS: TOTAL BILIRUBIN 0.3 mg/dL (0.0-1.0)
[2018-07-12] MEDS: methylPREDNISolone SOD SUCC 40 MG/ML VIAL IVP SCH (08:32)
[2018-07-12] MEDS: ENOXAPARIN SODIUM 40 MG/0.4 ML SYRINGE SUBCUT SCH ×2 (08:34→10:47)
[2018-07-12] MEDS: ASPIRIN 325 MG TABLET (ECOTRIN) PO SCH (08:35)
[2018-07-12] MEDS: ATORVASTATIN 20 MG TABLET PO SCH (08:35)
[2018-07-12] MEDS: SODIUM CHLORIDE 500 MG TABLET PO SCH ×2 (08:36→22:32)
[2018-07-12] MEDS: FOLIC ACID 1 MG TABLET PO SCH (08:36)
[2018-07-12] MEDS: chlordiazePOXIDE HCL 25 MG CAPSULE PO SCH ×3 (08:36→22:32)
[2018-07-12 08:44] VITALS: BP_SYST 110
[2018-07-12] MEDS: CARVEDILOL 3.125 MG TABLET (COREG) PO SCH ×2 (08:45→21:00)
--- NOTE | 2018-07-12 08:49 | NUR ---
ROUNDS: PATIENT AMBULATORY AND SITTING ON THE CHAIR. NO DISTRESS NOTED.
[2018-07-12] MEDS ORDERED: PREDNISONE 20 MG TABLET PO ONE (09:30)
--- NOTE | 2018-07-12 10:47 | NUR ---
MEDICATION: LOVENOX WITHHELD DUE TO PLATELET TRENDING DOWN. INFORMED DR. BARBER. PATIENT ALSO AMBULATES NOW.
[2018-07-12] MEDS ORDERED: SODIUM CHLORIDE 500 MG TABLET PO ONE (11:00)
[2018-07-12 12:00] VITALS: BP_SYST 100
--- NOTE | 2018-07-12 12:27 | NUR ---
rounds: patient sitting on the chair. no distress noted.
--- NOTE | 2018-07-12 13:32 | NUR ---
rounds: patient resting on bed. no distress noted.
--- NOTE | 2018-07-12 15:22 | NUR ---
ROUNDS: PATIENT WALKING AT THE HALLWAY. NO DISTRESS NOTED.
--- NOTE | 2018-07-12 15:50 | NUR ---
Dietitian Recommendations * Recommend regular diet w/ Ensure Enlive BID (oral supplement provides an additional 700 kcal/day and 40 gm protein/day) LP, RD Please refer to Nutrition Assessment for details.
[2018-07-12] MEDS: LEVOFLOXACIN 500 MG/D5W 100 ML IV SCH (16:59)
[2018-07-12] MEDS: MONTELUKAST 10 MG TABLET PO SCH (16:59)
[2018-07-12] MEDS: FOLIC ACID 1 MG, THIAMINE HCL 100 MG, MAGNESIUM SULFATE 1 GM, MVI 10 ML in NACL 0.9% 1,... IV SCH (17:00)
--- NOTE | 2018-07-12 18:00 | NUR ---
rounds: informed patient possible discharge tomorrow after labs and result improve. Patient verbalized understanding.
--- NOTE | 2018-07-12 19:20 | NUR ---
Closing notes: Patient on bed sleeping. Stable. Needs attended. Safety measures in placed. Call light within reach. Report given to SYLVIA Gandhi.
--- NOTE | 2018-07-12 19:40 | NUR ---
OPENING NOTE RECEIVED PT AND REPORT FROM DAY SHIFT. PT IS LAYING AWAKE IN BED. PT DENIES ANY PAIN AT THIS TIME. PT ON ROOM AIR. IVF INFUSING PER ORDERS. FALL AND SAFETY PRECAUTIONS IN PLACE. BED LOCKED IN LOWEST POSITION. PT REFUSES BED ALARM. EDUCATED PT ON PLAN OF CARE. PT VERBALIZED UNDERSTANDING. CALL LIGHT WITH PT. WILL CONTINUE TO MONITOR.
[2018-07-12 20:00] VITALS: BP_SYST 95
--- NOTE | 2018-07-12 22:32 | NUR ---
LATE MEDICATION ADMINISTRATION ADMINISTERED MEDICATION LATE DUE TO PT CARE. PT RESTING. PROVIDED PT WITH WATER. NO OTHER NEEDS. WILL CONTINUE TO MONITOR.
[2018-07-13 00:12] VITALS: BP_SYST 108
[2018-07-13] MEDS: IPRATROPIUM BROM 0.5 MG/2.5 ML VIAL.NEB (ATROVENT) INH SCH ×2 (01:00→07:24)
[2018-07-13] MEDS: ALBUTEROL SULFATE 0.083% 2.5 MG/3 ML VIAL.NEB INH SCH ×2 (01:00→07:24)
--- NOTE | 2018-07-13 02:38 | NUR ---
ROUNDING NOTE ADJUSTED PT IV MACHINE. NO OTHER NEEDS. CALL LIGHT WITH PT. WILL CONTINUE TO MONITOR.
[2018-07-13] MEDS: NACL 0.9% 1,000 ML IV SCH (03:57)
--- NOTE | 2018-07-13 04:01 | NUR ---
IVF ADMINISTERED IVF PER ORDERS. PT SLEEPING IN BED. NO S/S OF DISTRESS OR DISCOMFORT. CALL LIGHT WITH PT. WILL CONTINUE TO MONITOR.
--- NOTE | 2018-07-13 05:15 | NUR ---
PT SMOKING PT ROOM SMELLS LIKE SMOKE. PT NORBERT SMOKING IN BATHROOM OR ROOM. EDUCATED PT ON THE RISKS OF SMOKING IN THE HOSPITAL. SEARCHED PT BELONGINGS AND FOUND CIGARETTES IN COAT POCKET. PT DENIES HAVING A HISTOLOGY TECHNOLOGIST. SECURITY CALLED TO SEARCH PT. PT REFUSES TO BE SEARCHED. WILL CONTINUE TO MONITOR PT.
--- NOTE | 2018-07-13 06:52 | NUR ---
CLOSING NOTE WILL ENDORSE CARE AND REPORT TO DAY SHIFT NURSE. PT IS CURRENTLY RESTING IN BED. PT DENIES ANY PAIN AT THIS TIME. PT IN STABLE CONDITION. ALL NEEDS MET THROUGHOUT SHIFT. WILL MAKE NEXT SHIFT AWARE OF PT POSSIBLE SMOKING IN ROOM. CALL LIGHT WITH PT. WILL CONTINUE TO MONITOR.
[2018-07-13 07:10] LABS: BASOPHILS % (AUTO) 0.1 % (0.0-2.0); EOSINOPHILS % (AUTO) 0.1 % (0.0-4.0); HEMATOCRIT 31.9 % (36-54); LYMPHOCYTES # (AUTO) 1.2 K/uL (1.0-5.5); LYMPHOCYTES % (AUTO) 8.3 % (20.5-51.5); MEAN CORPUSCULAR HEMOGLOBIN 36 pg (27-31); MEAN CORPUSCULAR HGB CONC 34 % (32-36); MEAN CORPUSCULAR VOLUME 104 fL (79.0-98.0); MONOCYTES % (AUTO) 6.9 % (1.7-9.3); NEUTROPHILS % (AUTO) 84.6 % (40.0-70.0); PLATELET COUNT (AUTO) 82 K/uL (130-430); RED BLOOD CELL COUNT(AUTO) 3.08 MIL/uL (4.2-6.2); WHITE BLOOD COUNT (AUTO) 14.2 K/uL (4.8-10.8)
[2018-07-13 07:32] LABS: ALBUMIN 2.6 g/dL (3.4-4.8); CALCIUM 7.9 mg/dL (8.4-11.0); CREATININE 0.86 mg/dL (0.55-1.30); POTASSIUM 4.9 mmol/L (3.5-5.1); TOTAL BILIRUBIN 0.2 mg/dL (0.0-1.0)
--- NOTE | 2018-07-13 07:36 | NUR ---
Initial note: Patient sleeping. Stable. I.V. access patent. Safety measures in placed. Call light within reach. Report received from SYLVIA Gandhi.
[2018-07-13 07:44] VITALS: BP_SYST 103
[2018-07-13] MEDS: ATORVASTATIN 20 MG TABLET PO SCH (08:18)
[2018-07-13] MEDS: FOLIC ACID 1 MG TABLET PO SCH (08:20)
[2018-07-13] MEDS: SODIUM CHLORIDE 500 MG TABLET PO SCH (08:20)
[2018-07-13] MEDS: ASPIRIN 325 MG TABLET (ECOTRIN) PO SCH (08:20)
[2018-07-13] MEDS: chlordiazePOXIDE HCL 25 MG CAPSULE PO SCH (08:20)
[2018-07-13] MEDS: CARVEDILOL 3.125 MG TABLET (COREG) PO SCH (08:20)
[2018-07-13] MEDS: ENOXAPARIN SODIUM 40 MG/0.4 ML SYRINGE SUBCUT SCH (08:23)
[2018-07-13 09:00] VITALS: BP_SYST 105
[2018-07-13] MEDS ORDERED: PREDNISONE 20 MG TABLET PO SCH (09:00)
--- NOTE | 2018-07-13 09:00 | NUR ---
rounds: patient went out to smoke. He signed the waiver for smoking.
[2018-07-13] MEDS ORDERED: ALBUTEROL MDI INHALATION 8 GM INH INH PRN (09:30)
[2018-07-13] MEDS ORDERED: traMADol HCL HCL 50 MG TABLET (ULTRAM) PO PRN (09:30)
[2018-07-13 09:34] VITALS: BP_SYST 103
[2018-07-13 09:43] VITALS: BP_SYST 105
--- NOTE | 2018-07-13 11:13 | NUR ---
Prescription medication: Prescription medication sent via fax to [facility]. Followed up with [facility] and they received it. Call the family to follow up.
[2018-07-13] MEDS ORDERED: CEPHALEXIN 500 MG CAPSULE PO SCH (15:00)
[2018-07-13] MEDS ORDERED: FERROUS SULFATE 325 MG TABLET.DR PO SCH (21:00)
[2018-07-14] MEDS ORDERED: ALENDRONATE SODIUM 10 MG TABLET (FOSAMAX) PO SCH (06:00)
[2018-07-14] MEDS ORDERED: BUDESONIDE/FORMOTEROL 160-4.5 mCg, 6 GM INHALER INH SCH (09:00)
[2018-07-14] MEDS ORDERED: FLUTICASONE/VILANTEROL 1 EACH BLST.W.DEV INH SCH (09:00)
--- NOTE | 2018-07-15 13:35 | NUR ---
Discharge Follow Up Phone Call GENERALIST phoned patient, . Patient stated he was feeling better. He filled his prescriptions and is taking his medications as directed. He has discontinued the Aldactone as directed. Patient was unsure if his follow up appointment had been made. His sister schedules his appointments. GENERALIST stressed the importance of a follow up appointment, especially with a medication change. Patient agreed and will assure the appointment has been scheduled. Patient has not heard from a home health company. He does not want home health and will refuse, so GENERALIST will not pursue with [facility]. Patient has no other questions or concerns.
== END 2018-07-13 10:00 | disposition home or self-care (01) | DRG 139 ==
LOC: SED 10:58 → STU 14:15
PROVIDERS: ADMIT Internal Medicine; ATTEND Internal Medicine
DX: J18.9 Pneumonia, unspecified organism (principal); N17.9 Acute kidney failure, unspecified; R65.10 Systemic inflammatory response syndrome (SIRS) of non-infectious origin without acute organ dysfunction; K70.30 Alcoholic cirrhosis of liver without ascites; E87.1 Hypo-osmolality and hyponatremia; E87.5 Hyperkalemia; J44.0 Chronic obstructive pulmonary disease with (acute) lower respiratory infection; E86.0 Dehydration; J44.1 Chronic obstructive pulmonary disease with (acute) exacerbation; E78.5 Hyperlipidemia, unspecified; F10.20 Alcohol dependence, uncomplicated; F17.210 Nicotine dependence, cigarettes, uncomplicated; I10 Essential (primary) hypertension; M81.0 Age-related osteoporosis without current pathological fracture; T50.905A Adverse effect of unspecified drugs, medicaments and biological substances, initial encounter; N40.0 Benign prostatic hyperplasia without lower urinary tract symptoms; Z87.11 Personal history of peptic ulcer disease; Z79.899 Other long term (current) drug therapy; Y92.89 Other specified places as the place of occurrence of the external cause
CPT/HCPCS: 36415; 71045; 76770; 80048; 80053; 81000-TC; 82533; 83605; 83930-TC; 84295-TC; 84436; 84439; 84443-TC; 84480; 84484; 85025; 85610-TC; 85730-TC; 86710; 87040-TC; 87081; 87086; 93005; 94640; 94760; 96361; 96365; 96367; 96375; 99291; G0103; G0378; J0610; J0696; J1030; J1100; J1650; J1815; J1885; J1956; J3411; J3475; J3490; J7030; J7512; J7613

== ENCOUNTER 2019-02-15 11:43 | Emergency (ER) | payer MEDICAID ==
[~2019-02-15] VITALS: Ht 180.3 cm; Wt 64.4 kg
[~2019-02-15 11:43] MED LIST changes: +ALBMDI INH; +ALEN10TA6 PO; +BUDE6HFA INH; +CEPH-568 PO; -OMEP20TA20 PO; +SPIR50TA PO; -TRIA1CAP53 PO; -VITD400 PO
[2019-02-15 11:54] VITALS: BP_SYST 11
[2019-02-15 12:42] LABS: BASOPHILS # (AUTO) 0.1 K/uL (0.0-0.2); BASOPHILS % (AUTO) 1.4 % (0.0-2.0); EOSINOPHILS # (AUTO) 0.1 K/uL (0.0-0.4); EOSINOPHILS % (AUTO) 2.1 % (0.0-4.0); HEMATOCRIT 40.4 % (36-54); HEMOGLOBIN 13.6 g/dL (14.0-18.0); LYMPHOCYTES # (AUTO) 0.9 K/uL (1.0-5.5); LYMPHOCYTES % (AUTO) 22.6 % (20.5-51.5); MEAN CORPUSCULAR HEMOGLOBIN 38 pg (27-31); MEAN CORPUSCULAR HGB CONC 34 % (32-36); MEAN CORPUSCULAR VOLUME 113 fL (79.0-98.0); MONOCYTES # (AUTO) 0.6 K/uL (0.0-1.0); MONOCYTES % (AUTO) 14.4 % (1.7-9.3); NEUTROPHILS # (AUTO) 2.5 K/uL (1.8-7.7); NEUTROPHILS % (AUTO) 59.5 % (40.0-70.0); RED BLOOD CELL COUNT(AUTO) 3.57 MIL/uL (4.2-6.2); RED CELL DISTRIBUTION WIDTH 14.2 % (9.0-15.0); WHITE BLOOD COUNT (AUTO) 4.2 K/uL (4.8-10.8)
[2019-02-15 12:54] LABS: CALCIUM 9.2 mg/dL (8.4-11.0); CREATININE 0.76 mg/dL (0.55-1.30); POTASSIUM 3.8 mmol/L (3.5-5.1)
[2019-02-15 12:58] LABS: INR 0.9 (0.80-1.20); PROTHROMBIN TIME 9.5 SECS (9.5-12.5)
[2019-02-15 13:00] LABS: ALBUMIN 3.5 g/dL (3.4-4.8); TOTAL BILIRUBIN 0.7 mg/dL (0.0-1.0)
[2019-02-15 13:26] LABS: PLATELET COUNT (AUTO) 61 K/uL (130-430)
[2019-02-15 15:47] VITALS: BP_SYST 114
== END 2019-02-15 15:47 | disposition home or self-care (01) ==
LOC: SED 11:43
DX: S02.2XXD Fracture of nasal bones, subsequent encounter for fracture with routine healing (principal); S02.40ED Zygomatic fracture, right side, subsequent encounter for fracture with routine healing; H54.62 Unqualified visual loss, left eye, normal vision right eye; F17.210 Nicotine dependence, cigarettes, uncomplicated; J44.9 Chronic obstructive pulmonary disease, unspecified; Z79.899 Other long term (current) drug therapy; W22.8XXD Striking against or struck by other objects, subsequent encounter
CPT/HCPCS: 36415; 70450-TC; 70480; 80053; 85025; 85610-TC; 85730-TC; 93005; 99284

== ENCOUNTER 2019-04-22 15:29 | Emergency (ER) | payer MEDICAID ==
[~2019-04-22] VITALS: Ht 180.3 cm; Wt 63.0 kg
[2019-04-22 15:30] VITALS: BP_SYST 110
--- NOTE | 2019-04-22 16:27 | NUR ---
Patient to ER bed 08 to gown for evaluation. Side rails up.
--- NOTE | 2019-04-22 16:35 | NUR ---
DANNIELLE Delgado at bedside examining patient.
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
[2019-04-22] MEDS ORDERED: SULFAMETHOXAZOLE/TRIMETHOPR DS 1 TABLET PO ONE (17:15)
[2019-04-22] MEDS ORDERED: CEPHALEXIN 500 MG CAPSULE PO ONE (17:15)
[2019-04-22] MEDS ORDERED: ACETAMINOPHEN 500 MG TABLET PO ONE (18:15)
--- NOTE | 2019-04-22 18:20 | NUR ---
patient sent to ultrasound
--- NOTE | 2019-04-22 18:39 | NUR ---
patient returned in stable condition.
[2019-04-22] MEDS ORDERED: LIDOCAINE 2%, 20 ML MDV INJ ONE (19:15)
--- NOTE | 2019-04-22 19:35 | NUR ---
[employer] COMMISSIONER Cammie at bedside performing incision and drainage using sterile technique. Pt tolerate well.
[2019-04-22 20:36] VITALS: BP_SYST 118
--- NOTE | 2019-04-22 20:36 | NUR ---
Patient given written and verbal discharge instructions and verbalizes understanding. ER MD discussed with patient the results and treatment provided. Patient in stable condition. ID arm band removed. Rx of Keflex, Tramadol, Motrin, and Bactrim given. Patient educated on pain management and to follow up with PMD. Pain Scale 0/10. Opportunity for questions provided and answered. Medication side effect fact sheet provided.
== END 2019-04-22 20:36 | disposition home or self-care (01) ==
LOC: SED 15:29
DX: S80.11XA Contusion of right lower leg, initial encounter (principal); S40.811A Abrasion of right upper arm, initial encounter; L02.415 Cutaneous abscess of right lower limb; F17.210 Nicotine dependence, cigarettes, uncomplicated; I10 Essential (primary) hypertension; J44.9 Chronic obstructive pulmonary disease, unspecified; Z86.2 Personal history of diseases of the blood and blood-forming organs and certain disorders involving the immune mechanism; Z79.899 Other long term (current) drug therapy; Z71.6 Tobacco abuse counseling; V29.9XXA Motorcycle rider (driver) (passenger) injured in unspecified traffic accident, initial encounter; Y93.89 Activity, other specified; Y92.410 Unspecified street and highway as the place of occurrence of the external cause; Y99.8 Other external cause status
CPT/HCPCS: 10060; 73590; 93971; 99284; J2001

== ENCOUNTER 2019-04-25 11:08 | Emergency (ER) | payer MEDICAID ==
[~2019-04-25] VITALS: Ht 180.3 cm; Wt 63.0 kg
[2019-04-25 11:43] VITALS: BP_SYST 101
--- NOTE | 2019-04-25 12:02 | NUR ---
Patient to ER bed 4 to gown for evaluation. Side rails up. Report given to Shukri WARD.
--- NOTE | 2019-04-25 12:05 | NUR ---
Patient is coming into ER to have his abcess re-assessed. PT was here last week to drain and pack abcess. PT is not complaining of any pain. PT is not presenting any signs of acute distress.
--- NOTE | 2019-04-25 12:10 | NUR ---
ER at bedside examining patient.
[2019-04-25] MEDS ORDERED: NEOMY SULF/BACITRAC ZN/POLY 28 GM OINT..GM. TP ONE (12:45)
[2019-04-25] MEDS ORDERED: BACITRACIN 1 GM OINT TP ONE (12:54)
--- NOTE | 2019-04-25 13:02 | NUR ---
Patient given written and verbal discharge instructions and verbalizes understanding. ER MD discussed with patient the results and treatment provided. Patient in stable condition. ID arm band removed. IV catheter removed intact and dressing applied, no active bleeding.Opportunity for questions provided and answered. Medication side effect fact sheet provided.
[2019-04-25 19:37] VITALS: BP_SYST 101
== END 2019-04-25 19:37 | disposition home or self-care (01) ==
LOC: SED 11:08
DX: L02.415 Cutaneous abscess of right lower limb (principal); J44.9 Chronic obstructive pulmonary disease, unspecified; I10 Essential (primary) hypertension; Z86.2 Personal history of diseases of the blood and blood-forming organs and certain disorders involving the immune mechanism; Z79.899 Other long term (current) drug therapy
CPT/HCPCS: 99282